=== PATIENT | female | born 2000 | race Caucasian/White ===

== ENCOUNTER 2023-08-17 07:08 | Outpatient (CLI) | payer BC, SELFPAY ==
--- NOTE | 2023-08-17 08:25 | W.ANESCHARGE ---
Anesthesia Charges Start Date/Time Anesthesia Start Date: 08/17/23 Anesthesia Start Time: 08:08 Stop Date/Time Anesthesia Stop Date: 08/17/23 Anesthesia Stop Time: 08:35
--- NOTE | 2023-08-17 08:36 | W.ANESCHARGE ---
Anesthesia Charges Start Date/Time Anesthesia Start Date: 08/17/23 Anesthesia Start Time: 08:08 Stop Date/Time Anesthesia Stop Date: 08/17/23 Anesthesia Stop Time: 08:35
== END 2023-08-17 07:09 | disposition home or self-care (01) ==
LOC: OP CLINIC 07:10
PROVIDERS: PCP Family Medicine; Visit Provider Internal Medicine Gastroenterology
DX: K92.1 Melena (principal)
CPT/HCPCS: 00811; 45378; J2704

== ENCOUNTER 2023-09-19 17:53 | Emergency (ER) | payer BC, SELFPAY ==
[2023-09-19 18:05] VITALS: BP 116/70; PULSE 87; RESP 16; TEMP 36.5; O2SAT 100; BMI 21.0
--- NOTE | 2023-09-19 18:22 | ED_ITS ---
HPI - Skin/Abscess/Foreign Bdy General Date Seen: 09/19/23 Chief complaint: Skin/Abscess/Foreign Body Stated complaint: Stitches opened up on stomach Time Seen by Provider: 09/19/23 18:08 Source: patient Mode of arrival: ambulatory Limitations: no limitations History of Present Illness HPI narrative: Patient is a 23-year-old female presenting to emergency department for a wound on the left side of her abdomen. She states 1 month ago she went to sanding machine tender to have a pre cancerous mole removed. She had stitches placed to have the stitches removed 2 weeks ago. She states she then went on vacation and just got back few days ago. She has noticed the wound her stitches were is open and draining some purulent-appearing material. She is not sure if it was healing well when they removed the stitches. She has no follow-up scheduled to go over the results with dermatology. Denies fevers, chills, weakness, numbness, abdominal pain. No other concerns noted at this time Related Data Home Medications Medication Instructions Recorded Confirmed No Known Home Medications 01/08/23 01/08/23 Allergies Allergy/AdvReac Type Severity Reaction Status Date / Time No Known Drug Allergies Allergy Verified 01/08/23 23:21 Review of Systems 2 Narrative: Pertinent systems reviewed and negative unless stated in HPI PFSH PFSH Social History Smoking Status: Never smoker Do you use any of these nicotine containing products: None Second hand tobacco smoke exposure: No How often do you have a drink containing alcohol: 2-4 times a month How often do you have six or more drinks on one occasion: Never AUDIT-C Alcohol total score: 2 Non-prescribed substance use: denies use Exam Narrative: Exam Narrative: Const: Well-nourished, Well-developed, in no distress Eyes: PERRL, no conjunctival injection, and symmetrical lids HENT: Atraumatic external nose and ears. Moist mucous membranes. GI: Nontender/Nondistended, No rebound or guarding. MSK:Extremities w/o deformity, Normal Active ROM Skin: Warm, Dry. Uncertain 5 cm open wound with some purulent material noted to the left lower abdominal region Neuro: Normal Muscle tone, No focal neurological deficits. Psych: Awake, Alert, & Oriented x3. Appropriate mood and affect. Const: Vital Signs, click to edit/add: Vital Signs - 24 hr 09/19/23 18:05 Temperature 97.7 F Pulse Rate [Pulse Oximeter] 87 Respiratory Rate 16 Blood Pressure [Ri ght Upper Arm] 116/70 Pulse Oximetry 100 Oxygen Delivery Me thod Room Air Course Vital Signs Vital signs: Initial Vital Signs Temperature 97.7 F 09/19/23 18:05 Temperature Source Temporal Artery Scan 09/19/23 18:05 Pulse Rate 87 09/19/23 18:05 Respiratory Rate 16 09/19/23 18:05 Blood Pressure 116/70 09/19/23 18:05 Blood Pressure Mean 85 09/19/23 18:05 Pulse Oximetry 100 09/19/23 18:05 Oxygen Delivery Method Room Air 09/19/23 18:05 Vital Signs Temperature 97.7 F 09/19/23 18:05 Pulse Rate 87 09/19/23 18:05 Respiratory Rate 16 09/19/23 18:05 Blood Pressure 116/70 09/19/23 18:05 Pulse Oximetry 100 09/19/23 18:05 Oxygen Delivery Method Room Air 09/19/23 18:05 Temperature 97.7 F 09/19/23 18:05 Pulse Rate 87 09/19/23 18:05 Respiratory Rate 16 09/19/23 18:05 Blood Pressure 116/70 09/19/23 18:05 Pulse Oximetry 100 09/19/23 18:05 Oxygen Delivery Method Room Air 09/19/23 18:05 MDM - Skin/Abscess/Foreign Bdy MDM Narrative Medical decision making narrative: Patient is a 23-year-old female presenting to the emergency department for a wound. The wound is from a mole removal by dermatology. She has noticed it has been getting more infected in appearance with purulent material draining from it. It is not closed even though sutures were placed in or in for 2 weeks. She is otherwise doing well and showing no signs of sepsis. I did do a quick ultrasound and did not see any deeper abscess forming. We did do a wound culture. I do not believe lab work is necessary at the time as she is otherwise doing well. I will start her on antibiotics informed her to have close follow- up with a sanding machine tender Discharge Plan Discharge Clinical Impression: Cellulitis Qualifiers: Site of cellulitis: trunk Site of cellulitis of trunk: abdominal wall Qualified Code(s): L03.311 - Cellulitis of abdominal wall Prescriptions: No Action No Known Home Medications
--- OUTSIDE RECORDS SUMMARY | 2023-09-19 18:30 | XMS_ITS | Encounter Summary ---
Author Name Unknown Organization [facility] Address [address] [place] [address] Care Team Providers Care Ladle Watcher Name Role Phone No Primary/Referring, Phy Primary Care Provider Unavailable Encounter Details Date Type Department Care Team Description 03/11/2023 Notes/Orders [facility] [address] [place] [id number] Maia Foster, STUDENT CAREER DEVELOPMENT SPECIALIST, NURSE COMPANION [address] [place] [address] Chlamydia (HRC) (Primary Dx) Social History Tobacco Use Types Packs/Day Years Used Date Smoking Tobacco: Never Alcohol Use Standard Drinks/Week Comments Yes 0 (1 standard drink = 0.6 oz pur e alcohol) socially Sex and Gender Information Value Date Recorded Sex Assigned at Not on file Gender Identity Not on file Sexual Orientation Not on file documented as of this encounter Plan of Treatment Not on file documented as of this encounter Visit Diagnoses Diagnosis Chlamydia (HRC)- Primary Other specified chlamydial infection, in conditions classified elsewhere and of unspecified site documented in this encounter Care Teams Ladle Watcher Relationship Specialty Start Date End Date No Primary/Referring, Phy PCP - General 03/10/23 documented as of this encounter
--- OUTSIDE RECORDS SUMMARY | 2023-09-19 18:30 | XMS_ITS | Encounter Summary ---
Author Name Unknown Organization [facility] Address [address] [place] [address] Care Team Providers Care Outreach Nurse Name Role Phone No Primary/Referring, Phy Primary Care Provider Unavailable Reason for Visit * Reason Comments LAB RESULTS Encounter Details Date Type Department Care Team Description 03/11/2023 Telephone [facility] [address] [place] [id number] Maia Foster APRN, BOWLING BALL GRADER [address] [place] [address] LAB RESULTS Social History Tobacco Use Types Packs/Day Years Used Date Smoking Tobacco: Never Alcohol Use Standard Drinks/Week Comments Yes 0 (1 standard drink = 0.6 oz pur e alcohol) socially Sex and Gender Information Value Date Recorded Sex Assigned at Not on file Gender Identity Not on file Sexual Orientation Not on file documented as of this encounter Nursing Notes * Supriya King CMA - 03/11/2023 8:31 AM CDT Patient notified of results Supriya King CMA 03/11/2023, 8:32 AM * Marilin Langston - 03/11/2023 8:19 AM CDT Left message to call back 03/11/23 8:19 AM Marleen Foster APRN, BOWLING BALL GRADER 03/11/2023 8:04 AM CDT Back to Top Please call Sara and let her know that she did test positive for having Chlamydia. A prescription for Doxycycline taken twice a day for 7 days was sent to the [facility] in [place]. It isimportant that Sara take this medication for the full 7 days. She also should wear sunscreen orcover up because it can cause her to sunburn more easily. Sara should encourage any partners allan seen and tested as well. Maia Foster APRN, BOWLING BALL GRADER 03/11/2023, 8:04 AM documented in this encounter Plan of Treatment Not on file documented as of this encounter Visit Diagnoses Not on filedocumented in this encounter Care Teams Outreach Nurse Relationship Specialty Start Date End Date No Primary/Referring, Amauri PCP - General 03/10/23 documented as of this encounter
--- OUTSIDE RECORDS SUMMARY | 2023-09-19 18:30 | XMS_ITS | Clinical Summary ---
Author Name Unknown Organization [facility] Address [address] [place] [address] Care Team Providers Care Core Winding Operator Name Role Phone No Primary/Referring, Phy Primary Care Provider Unavailable Source Comments You are receiving this document as you are listed as the primary care provider,follow-up provider, or the patient has been referred to you for consultation.This is in compliance with the Medicare and[facility] EHR Incentive Program,which states Providers who transition their patient to another setting of careor provider of care or refers their patient to another provider of care shouldprovide summary care record for each transition of care or referral. [facility] Allergies No known active allergies Medications Medication Sig Dispensed Refills Start Date End Date Status amphetamine-dextroamph etamine (ADDERALL) 20 MG tablet Take 1 Tablet (20 mg) by mouth two times a day. 0 02/20/2023 Active Active Problems No known active problems Social History Tobacco Use Types Packs/Day Years Used Date Smoking Tobacco: Never Tobacco Cessation:Counseling Given: Not Answered Alcohol Use Standard Drinks/Week Comments Yes 0 (1 standard drink = 0.6 oz pur e alcohol) socially Sex and Gender Information Value Date Recorded Sex Assigned at Not on file Gender Identity Not on file Sexual Orientation Not on file Last Filed Vital Signs Vital Sign Reading Time Taken Comments Blood Pressure 124/71 03/10/2023 3:42 PM CDT Pulse 69 03/10/2023 3:42 PM CDT Temperature 36.7 ??C (98.1 ??F) 03/10/2023 3:42 PM CD T Respiratory Rate 16 03/10/2023 3:42 PM CDT Oxygen Saturation 100% 03/10/2023 3:42 PM CDT Inhaled Oxygen Concentration - - Weight 63.8 kg (140 lb 9.6 oz) 03/10/2023 3:42 P M CDT Height - - Body Mass Index - - Plan of Treatment Health Maintenance Due Date Last Done Comments Cervical Cancer Screening Due 2001 Hep C Screening (Preventive Services) 2001 HepB (1) 2001 COVID-19 Vaccine (#1) 2001 HIV Screening (Preventive Services) 2017 Adult Preventive Visit 2019 DTaP/Tdap/Td (7 - Tdap) 04/01/2023 04/01/20 13, 03/20/2006, 05/06/2002, Additional history exists Influenza (#1) 2023 05/21/2016, 06/11, 05/13/2013, Additional history exists Chlamydia 03/10/2024 03/10/2023 Zoster/Shingles (1 of 2) 2051 Pneumococcal Aged Out 2001, 04/10, 2001 No longer eligible based on patient's age to complete this topic Hib Completed 01/07/2002, 04/10, 2001 IPV (Polio) Completed 03/20/2006, 06/11, 2001, Additional history exists HepA Completed 07/31/2014, 04/01/2013 HPV Vaccine Completed 02/06/2016, 07/11, 04/01/2013 MCV4 Completed 10/14/2019, 05/13/2013 Care Teams Core Winding Operator Relationship Specialty Start Date End Date No Primary/Referring, Phy PCP - General 03/10/23
--- OUTSIDE RECORDS SUMMARY | 2023-09-19 18:31 | XMS_ITS | Clinical Summary ---
Author Name Unknown Organization [facility] Address [address] [place] [address]. [place] [address] Care Team Providers Care Sales Office Administrator Name Role Phone Kristy Cortez MD Primary Care Provider [phone] Allergies No known active allergies Medications Medication Sig Dispensed Refills Start Date End Date Status Ipratropium-Albuterol (COMBIVENT RESPIMAT) 20-100 MCG/ACT inhaler Inhale 1 puff into the lungs 4 times daily 0 Active Social History Tobacco Use Types Packs/Day Years Used Date Smoking Tobacco: Never Assessed Adolescent Education Answer Date Record ed Getting School Help Needed Not on file 05/01 Sex and Gender Information Value Date Recorded Sex Assigned at Not on file Gender Identity Not on file Sexual Orientation Not on file Last Filed Vital Signs Vital Sign Reading Time Taken Comments Blood Pressure 126/69 07/20/2017 4:07 PM HOUSECLEANER Pulse 88 07/20/2017 6:52 PM HOUSECLEANER Temperature 37.1 ??C (98.7 ??F) 07/20/2017 4:07 PM CS T Respiratory Rate 16 07/20/2017 6:52 PM HOUSECLEANER Oxygen Saturation 100% 07/20/2017 6:52 PM HOUSECLEANER Inhaled Oxygen Concentration - - Weight 61.2 kg (135 lb) 07/20/2017 4:07 PM HOUSECLEANER Height - - Body Mass Index - - Plan of Treatment Health Maintenance Due Date Last Done Comments ADVANCE CARE PLANNING 2001 ANNUAL REVIEW OF HM ORDERS 2001 CHLAMYDIA SCREENING 2001 HEPATITIS B IMMUNIZATION (1 of 3 - 3-dose series) 2001 YEARLY PREVENTIVE VISIT 2001 COVID-19 Vaccine (#1) 2001 DTAP/TDAP/TD IMMUNIZATION (1 - Tdap) 01/02/2008 HPV IMMUNIZATION (1 - 2-dose series) 01/02/2012 HIV SCREENING 01/02/2016 HEPATITIS C SCREENING 2019 PAP 2022 INFLUENZA VACCINE (#1) 2023 PHQ-2 (once per calendar year) 2023 IPV IMMUNIZATION Aged Out No longer e ligible based on patient's age to complete this topic MENINGITIS IMMUNIZATION Aged Out No l onger eligible based on patient's age to complete this topic Pneumococcal Vaccine: Pediat rics (0 to 5 Years) and At-Risk Patients (6 to 64 Years) Aged Out No longer eligi ble based on patient's age to complete this topic RSV MONOCLONAL ANTIBODY Aged Out No l onger eligible based on patient's age to complete this topic Care Teams Sales Office Administrator Relationship Specialty Start Date End Date Kristy Cortez MD PCP - General Family Practice 07/20/17
--- OUTSIDE RECORDS SUMMARY | 2023-09-19 18:31 | XMS_ITS | Encounter Summary ---
Author Name Unknown Organization [facility] Address [address] [address] Care Team Providers Care Exercise Physiology Professor Name Role Phone No Primary/Referring, Phy Primary Care Provider Unavailable Reason for Visit * Reason Comments Sore Throat Encounter Details Date Type Department Care Team Description 03/10/2023 3:00 PM CDT Office Visit [facility] [address] [facility] [place] [phone] Denny Hicks PA-C [address] [place] [address] Strep throat (Primary Dx); Sore throat; High risk sexual behavior, unspecified type Social History Tobacco Use Types Packs/Day Years Used Date Smoking Tobacco: Never Tobacco Cessation:Counseling Given: Not Answered Alcohol Use Standard Drinks/Week Comments Yes 0 (1 standard drink = 0.6 oz pur e alcohol) socially Sex and Gender Information Value Date Recorded Sex Assigned at Not on file Gender Identity Not on file Sexual Orientation Not on file documented as of this encounter Last Filed Vital Signs Vital Sign Reading [...] - - Body Mass Index - - documented in this encounter Patient Instructions * Attachments The following attachments cannot be sent through Care Everywhere. * Strep Throat (Palestinian) documented in this encounter Progress Notes * Denny Hicks PA-C - 03/10/2023 3:00 PM CDT Historical: Chief Complaint Patient presents with Sore Throat Cold/Cough/Flu/Sinus/Sore Throat How long have you had these symptoms? 2 day(s) What cold symptoms are you experiencing?Sorethroat Do you have any difficulty swallowing? No Do you have any ear pain when swallowing? No Have you been diagnosed with strep within the last month? No Were you exposed to someone with strep throat? No Have you had a fever? No Are there any treatments you have tried? No STI Screening Do you have a concern about risk of infection from a particular partner? YES How long ago was the potential exposure? 1 week(s) Do you know if they had any particular type of infection? No Are you currently having any of the following symptoms: Swollen glands Have you had unprotected intercourse in the last 3 months? YES Have you had a history of sexually transmitted infection? No Are you sexually active with: males Have you had any new partners in the past 3 months? YES What do you use to prevent ? None No LMP recorded. SUBJECTIVE: Sara Allen is a 23 y.o. female who complains of sore throat, also congestion, mild cough, chills and fatigue for 2 day(s). She denies , rash, recent travel. Patient also requesting STI testing. Reports sexually active with male partners, usually but not always uses barrier protection. Denies symptoms of concern at this time or confirmed exposure from a partner Allergies: Patient has no known allergies. OBJECTIVE: BP 124/71 (BP Location: Right Arm, BP Cuff Size: Regular) Pulse 69 Temp 98.1 ??F (36.7 ??C) (Oral) Resp 16 Wt 140 lb 9.6 oz (63.8 kg) SpO2 100% She appears well, vital signs are as noted by the nurse. Eyes- YOSELYN, EOMI, no injection of conjunctiva. Ears normal. Throat and pharynx- erythema posterior pharynx, erythema and bilateral tonsillar exudate noted without significant swelling, uvula midline, no abscess noted, airway patent. Neck supple, FROM. Submandibular adenopathy in the neck. Nose is non-congested. Sinuses non tender.Resp- normal effort, chest is clear, without wheezes or rales. Heart RRR, no MRG. Neuro- gait normal. ASSESSMENT: ICD-10-CM 1. Strep throat J02.0 penicillin V potassium (PEN VK) 500 MG tablet 2. Sore throat J02.9 STREP GROUP A, Molecular Detection 3. High risk sexual behavior, unspecified type Z72.51 Chlamydia & GC (14 Years and Older): Vagina Results for orders placed or performed in visit on 03/10/23 STREP GROUP A, Molecular Detection Result Value Ref Range Group A Strep Detected (A) Not Detected PLAN: penicillin V potassium (PEN VK) 500 MG tablet Take 1 Tablet (500 mg) by mouth two times a day for 10 days. Will treat strep with penicillin Testing for gonorrhea and chlamydia is pending at this time, please call with results and treat if indicated Offered blood tests for further STI which patient declines at this time Advised supportive care, oral fluids, rest, activity as tolerated. Saltwater gargle, lozenges, Acetaminophen, Ibuprofen PRN for symptom relief. Follow up with PCP as needed for continuing care. Discussed symptomatic care and red flags that should prompt re-evaluation. Portions of this note were created using speech-recognition software and may contain unintended word substitutions. Answered any questions. Patient (and/or hearing examiner) verbalizes understanding of and agreement with care plan. Denny Hicks PA-C 03/10/2023, 4:28 PM documented in this encounter Plan of Treatment Not on file documented as of this encounter Procedures Procedure Name Priority Date/Time Associated Diagnosis Comments CHLAMYDIA & GC (14 YEARS & OLDER) Routine 03/10/2023 4:15 PM CDT High risk sexual behavior, unspecified type STREP GROUP A, MOLECULAR DETECTION STAT 03/10/2023 3:47 PM CDT Sore throat documented in this encounter Results * (ABNORMAL) Chlamydia & GC (14 Years and Older): Vagina (03/10/2023 4:15 PM CDT) Chlamydia Trachomatis STD Detected(A) Not Detected 03/11/2023 4:20 AM CDT [facility] N. gonorrhoeae STD Not Detected Not Detected 03/11/2023 4:20 AM CDT [facility] Swab STD SPECIMEN FROM VAGINA / Unknown Non-blood Collection / Unknown 03/10/2023 4:15 PM CDT 03/10/2023 4:22 PM CDT Narrative [facility] - 03/11/2023 4:20 AM CDT Test performed by Machine Stemmer Mediated Amplification (TMA). Denny Hicks PA-C LAB_1 Performing Organization Address City/[facility]/ZIP Co de Phone Number [facility] [address] [address], [facility] [phone] * (ABNORMAL) STREP GROUP A, Molecular Detection (03/10/2023 3:47 PM CDT) Pathologist [facility] Group A Strep Detected( A) Not Detected 03/10/2023 4:20 PM CDT [facility] Comment:Methodology: Qualita tive real-time PCR assay Swab (Source Required) THROAT SWAB / Unknown Non-blood Collection / Unknown 03/10/2023 3:47 PM CDT 03/10/2023 3:57 PM CDT Denny Hicks PA-C LAB_1 Performing Organization Address City/[facility]/ZIP Co de Phone Number [facility] [address] [place] [address], [facility] [phone] documented in this encounter Visit Diagnoses Diagnosis Strep throat- Primary Streptococcal sore throat Sore throat Acute pharyngitis High risk sexual behavior, unspecified type documented in this encounter Care Teams Exercise Physiology Professor Relationship Specialty Start Date End Date No Primary/Referring, Phy PCP - General 03/10/23 documented as of this encounter
--- OUTSIDE RECORDS SUMMARY | 2023-09-19 18:31 | XMS_ITS | Encounter Summary ---
Author Name Unknown Organization [facility] [facility] Address [facility] [place] [address] Care Team Providers Care Languages And Literature Instructor Name Role Phone Establish, Need To MD Primary Care Provider [phone]- [phone] Reason for Visit * Reason Comments Cough Cough x1 week. Worse in last 2 days with hoarse voice and chest tightness. Fevers last night Encounter Details Date Type Department Care Team Description 10/27/2022 12:06 PM CDT - 10/27/2022 1:11 PM CDT Hospital Encounter [facility] [address] [place] [id number] Hiren Roman MD [address] [place], [place] [address] [address] Discharge Disposition: Discharge Home Social History Tobacco Use Types Packs/Day Years Used Date Smoking Tobacco: Never Smokeless Tobacco: Never Sex and Gender Information Value Date Recorded Sex Assigned at Not on file Gender Identity Not on file Sexual Orientation Not on file COVID-19 Exposure Response Date Recorded In the last 10 days, have yo u been in contact with someone who was confirmed or suspected to have Coronavirus/COVID-19? No / Unsure 10/27/2022 12:09 PM CDT documented as of this encounter Last Filed Vital Signs Vital Sign Reading Time Taken Comments Blood Pressure 128/77 10/27/2022 12:10 PM CDT Pulse 73 10/27/2022 12:10 PM CDT Temperature 36.8 ??C (98.2 ??F) 10/27/2022 12:10 PM C DT Respiratory Rate 18 10/27/2022 12:10 PM CDT Oxygen Saturation 97% 10/27/2022 12:10 PM CDT Inhaled Oxygen Concentration - - Weight - - Height - - Body Mass Index - - documented in this encounter Discharge Instructions * Discharge Instructions* Hiren Roman MD - 10/27/2022 12:57 PM CDT Your symptoms are compatible with a viral respiratory infection at this time. If her symptoms are not improving as I anticipate they will with time or if they worsen you may fill prescription for theantibiotic. If you do take the oral antibiotic you should take a probiotic while on that. * Attachments The following attachments cannot be sent through Care Everywhere. * Acute Bronchitis Adult (Prydeinig) documented in this encounter Medications at Time of Discharge Medication Sig Dispensed Refills Start Date End Date albuterol 90 mcg/actuation HFA inhaler Inhale 2 Puffs into mouth/lungs every 4 hours as needed for Wheezing 18 g 4 10/27/2022 10/27/2023 dextroamphetamine-amphe tamine (ADDERALL) 20 mg tablet Take 1 Tablet (20 mg) by mouth 2 times daily 0 03/28/2021 ipratropium-albuteroL (COMBIVENT RESPIMAT) 20-100 mcg/actuation inhaler Inhale 1 Puff into mouth/lungs 0 azithromycin (ZITHROMAX) 250 mg tablet Take 2 Tablets (500 mg) by mouth daily for 1 day, THEN 1 Tablet (250 mg) daily for 4 days. 6 Tablet 0 10/27/2022 11/01/2022 documented as of this encounter Ordered Prescriptions Prescription Sig Dispensed Refills Start Date End Da te albuterol 90 mcg/actuation HFA inhaler Inhale 2 Puffs into mouth/lungs every 4 hours as needed for Wheezing 18 g 4 10/27/2022 10/27/2023 azithromycin (ZITHROMAX) 250 mg tablet Take 2 Tablets (500 mg) by mouth daily for 1 day, THEN 1 Tablet (250 mg) daily for 4 days. 6 Tablet 0 10/27/2022 11/01/2022 documented in this encounter Discharge Disposition Disposition Code Departure Means Destination Discharge Home Home documented in this encounter ED Notes * Hiren Roman MD - 10/27/2022 12:05 PM CDT Sara Allen [id number] Assessment & ED/ Department Course Assessment 1. Viral bronchitis ED Course as of 10/27/22 1310 Mon Oct 27, 2022 1255 COVID-19 SCREEN: COVID-19 Negative patient's COVID test was negative. Patient's x-ray as read by radiologist was negative for acute findings. I discussed most likely viral nature of illness and symptomatic treatment including albuterol inhaler as she does have exercise- induced asthma. I did go with a rescue prescription for azithromycin as they will be traveling and if not improving as I would anticipate in a week's time or if symptoms are worsening that will be something that they will be able to reach for but I did discuss if that is filled the risks of diarrhea etc. and benefits of taking a probiotic while on an oral antibiotic. I also discussed symptoms dramatically worsen that re-evaluation healthcare provider would be most appropriate. Disposition: Discharged Follow-up Appointment/Instructions/Discharge Medication Summary No follow up. Medications At Discharge Start Taking albuterol 90 mcg/actuation HFA inhaler Inhale 2 Puffs into mouth/lungs every 4 hours as needed for Wheezing azithromycin 250 mg tablet Commonly known as: ZITHROMAX Take 2 Tablets (500 mg) by mouth daily for 1 day, THEN 1 Tablet (250 mg) daily for 4 days. Start taking on: October 27, 2022 Discharge Instructions Your symptoms are compatible with a viral respiratory infection at this time. If her symptoms are not improving as I anticipate they will with time or if they worsen you may fill prescription for theantibiotic. If you do take the oral antibiotic you should take a probiotic while on that. History of Present Illness HPI Patient is here with mother because of symptoms that have been going on for the past for 5 days. Yesterday she had chest pain with this. It was hurting to breathe even shallowly. Last night was more in the front of the chest. It now feels tight. She does have a history of exercise-induced asthma for which she had been on albuterol. She did try her inhaler which was and did not help much. Last night her mother reports that her lips had been Blue. It feels like sandpaper when she tries tobreathe. In the past for 5 days now she is been dealing with her nose being plugged. She has recently come back from spring in [place]. She states she had popped her ears and had episode of dizz iness after landing. That is not something he typically deals with. She did have fevers last night. Past Medical History, Past Surgical History, Problem List, Family History, Social History, Medication List, and Allergies were reviewed as documented in [facility] Snapshot. Relevant ROS are documented within the HPI above. Physical Exam Initial Vital Signs Repeat (last) Vital Signs BP: 128/77 Pulse : 73 Temp: 36.8 ??C (98.2 ??F) Resp Rate: 18 O2 Sat (%): 97 % Device (Oxygen Therapy): room air . Physical Exam Vitals and nursing note reviewed. Constitutional: Appearance: Normal appearance. HENT: Right Ear: Tympanic membrane normal. Left Ear: Tympanic membrane normal. Nose: Congestion present. Mouth/Throat: Mouth: Mucous membranes are moist. Cardiovascular: Rate and Rhythm: Normal rate and regular rhythm. Heart sounds: Normal heart sounds. Pulmonary: Comments: She has diminished breath sounds in her bases. I did not appreciate any wheezing or prolonged expiratory phase. There were some rales that cleared on her left side posteriorly Musculoskeletal: Cervical back: Neck supple. Neurological: Mental Status: She is alert. Procedure E / M Documentation MDM Medications - No data to display XR Chest -Cough 2 Views Final Result No acute cardiopulmonary finding. Interpreting Provider Location: [place] [address] Labs Reviewed LAB RAPID COVID-19 SCREEN- NASAL SWAB - Normal Narrative: Negative results should be treated as presumptive and, if inconsistent with clinical signs and symptoms or necessary for patient management, should be tested with an alternative molecular assay. documented in this encounter Plan of Treatment Not on file documented as of this encounter Procedures Procedure Name Priority Date/Time Associated Diagnosis Comments LAB RAPID COVID-19 SCREEN- NASAL SWAB STAT 10/27/2022 12:54 PM CDT XR CHEST 2 VIEWS (PA AND LATERAL) Stat & Read Stat 10/27/2022 12:33 PM CDT documented in this encounter Results * RAPID COVID-19 Screen- Nasal Swab (10/27/2022 12:54 PM CDT) [facility] Signature COVID-19 SCREEN COVID-19 Negative COVID-19 Negative 10/27/2022 12:55 PM CDT [facility] Respiratory NASAL STRUCTURE / Unknown 10/27/2022 12:54 PM CDT 10/27/2022 12:54 PM CDT Narrative [facility] - 10/27/2022 12:55 PM CDT Negative results should be treated as presumptive and, if inconsistent with clinical signs and symptoms or necessary for patient management, should be tested with an alternative molecular assay. Hiren Roman MD MICROBIOLOGY - GEN ERAL ORDERABLES [facility] [address] [address] * XR Chest -Cough 2 Views (10/27/2022 12:33 PM CDT) Anatomical Region Laterality Modality Chest Computed Radiogr aphy 10/27/2022 12:4 1 PM CDT Impressions 10/27/2022 12:42 PM CDT No acute cardiopulmonary finding. Interpreting Provider Location: [facility] [address] Narrative 10/27/2022 12:42 PM CDT XR CHEST 2 VIEWS (PA AND LATERAL), obtained on 10/27/2022 12:33 PM HISTORY: COUGH COMPARISON: None. ? FINDINGS: The cardiac silhouette, mediastinal contours, and central pulmonary vascularity are within normal limits. The lungs are clear, without focal consolidation, pneumothorax, or pleural effusion. There is no acute appearing finding involving the visualized superficial soft tissues or osseous structures. Procedure Note Dario Segovia MD - 10/27/2022 XR CHEST 2 VIEWS (PA AND LATERAL), obtained on 10/27/2022 12:33 PM HISTORY: COUGH COMPARISON: None. FINDINGS: The cardiac silhouette, mediastinal contours, and central pulmonaryvascularity are within normal limits. The lungs are clear, without focal consolidation, pneumothorax, or pleuraleffusion. There is no acute appearing finding involving the visualized superficialsoft tissues or osseous structures. IMPRESSION: No acute cardiopulmonary finding. Interpreting Provider Location: [facility] Kimberly Rodriguez [id number] Hiren Roman MD XRAY ORDERABLES documented in this encounter Visit Diagnoses Diagnosis Viral bronchitis- Primary Acute bronchitis documented in this encounter Historical Medications * This list may reflect changes made after this encounter. Medication Sig Dispensed Refills Start Date End Date ipratropium-albuteroL (COMBIVENT RESPIMAT) 20-100 mcg/actuation inhaler Inhale 1 Puff into mouth/lungs 0 added in this encounter Additional Health Concerns Infection Onset Date Last Indicated Resolved Time PUI-COVID 10/27/2022 10/27/2022 10/27/2022 12:5 5 PM CDT documented as of this encounter Care Teams Languages And Literature Instructor Relationship Specialty Start Date End Date Establish, Need To, [address] [facility] [place] [address] PCP - General EDITOR SCHOOL PHOTOGRAPH 10/27/22 documented as of this encounter
--- OUTSIDE RECORDS SUMMARY | 2023-09-19 18:31 | XMS_ITS | Referral Summary ---
Author Name Unknown Organization [place] Address [address] [place] [address]. [place] [address] Care Team Providers Care Drawer Liner Name Role Phone Kristy Cortez MD Primary Care Provider [phone] Allergies No known active allergies Medications Medication [...] Comments Blood Pressure 126/69 07/20/2017 4:07 PM CONSULTING TECHNICAL DIRECTOR Pulse 88 07/20/2017 6:52 PM CONSULTING TECHNICAL DIRECTOR Temperature 37.1 ??C (98.7 ??F) 07/20/2017 4:07 PM CS T Respiratory Rate 16 07/20/2017 6:52 PM CONSULTING TECHNICAL DIRECTOR Oxygen Saturation 100% 07/20/2017 6:52 PM CONSULTING TECHNICAL DIRECTOR Inhaled Oxygen Concentration - - Weight 61.2 kg (135 lb) 07/20/2017 4:07 PM CONSULTING TECHNICAL DIRECTOR Height - - Body Mass Index - - Plan of Treatment Not on file Care Teams Drawer Liner Relationship Specialty Start Date End Date Kristy Cortez MD PCP - General Family Practice 07/20/17
--- OUTSIDE RECORDS SUMMARY | 2023-09-19 18:31 | XMS_ITS | Clinical Summary ---
Author Name Unknown Organization [facility] Address [address] [place] [address] Care Team Providers Care Executive Pastry Chef Name Role Phone Establish, Need To MD Primary Care Provider [phone] Source Comments If you need additional information that is not available on Care Everywhere, please contact our Medical Records Department during business hours (Thursday - Thursday, 8 am - 5 pm) at . During nonbusiness hours, please contact our Trauma and Emergency Center at .[facility] and [facility] Allergies No known active allergies Medications * Medications may not be up to date as of this document. Always verify current medications with the patient. Medication Sig Dispensed Refills Start Date End Date Status dextroamphetamine-am phetamine (ADDERALL) 20 mg tablet Take 1 Tablet (20 mg) by mouth 2 times daily 0 03/28/2021 Active ipratropium-albutero L (COMBIVENT RESPIMAT) 20-100 mcg/actuation inhaler Inhale 1 Puff into mouth/lungs 0 Active albuterol 90 mcg/actuation HFA inhaler Inhale 2 Puffs into mouth/lungs every 4 hours as needed for Wheezing 18 g 4 10/27/2022 10/27/2023 Active Social History Tobacco Use Types Packs/Day Years Used Date Smoking Tobacco: Never Smokeless Tobacco: Never Sex and Gender Information Value Date Recorded Sex Assigned at Not on file Gender Identity Not on file Sexual Orientation Not on file Obstetrics History Last Filed Vital Signs Vital Sign Reading [...] Health Maintenance Due Date Last Done Comments COVID-19 Vaccine (#1) 2001 DEPRESSION/ANXIETY PHQ4 2013 CERVICAL CANCER SCREENING 2019 LIPID SCREEN 2019 WELLNESS VISIT 2019 PERTUSSIS 01/02/2020 DTaP/Tdap/Td Vaccine (7 - Td or Tdap) 04/01/2023 04/01/2013, 03/20/2006, 05/06/2002, Additional history exists CHLAMYDIA SCREEN 04/24/2023 04/24/2022 INFLUENZA (#1) 2023 05/21/2016, 06/11, 05/13/2013, Additional history exists PNEUMOCOCCAL AGES 0-64 YEARS Aged Out 2001, 2001, 2001 No longer eligible based on patient's age to complete this topic POLIO (IPV) Vaccine Completed 03/20/2006, 2001, 2001, Additional history exists HPV Vaccine Completed 02/06/2016, 07/11, 04/01/2013 Care Teams Executive Pastry Chef Relationship Specialty Start Date End Date Establish, Need ToMD [address] [facility] [place] [address] PCP - General MUD JACK OPERATOR 10/27/22
--- OUTSIDE RECORDS SUMMARY | 2023-09-19 18:31 | XMS_ITS | Encounter Summary ---
Author Name Unknown Organization [employer] [facility] Address [address] [place] [address] Care Team Providers Care Gi Physician Name Role Phone Establish, Need To Primary Care Provider [phone] Encounter Details Date Type Department Care Team Description 10/27/2022 Travel Social History Tobacco Use Types Packs/Day Years [...] PM CDT documented as of this encounter Plan of Treatment Not on file documented as of this encounter Visit Diagnoses Not on filedocumented in this encounter Additional Health Concerns Infection Onset Date Last Indicated Resolved Time PUI-COVID 10/27/2022 10/27/2022 10/27/2022 12:5 5 PM CDT documented as of this encounter Care Teams Gi Physician Relationship Specialty Start Date End Date Establish, Wendy ToMD [address] [place], [place] [id number] PCP - General JEWEL STAKER 10/27/22 documented as of this encounter
--- OUTSIDE RECORDS SUMMARY | 2023-09-19 18:31 | XMS_ITS | Clinical Summary ---
Author Name Unknown Organization [facility] [place], [place] [address] Care Team Providers Care Panelboard Operator Name Role Phone Kristy Cortez Primary Care Provider Allergies No known active allergies Medications Medication Sig Dispensed Refills Start Date End Date Status albuterol HFA (VENTOLIN HFA) 90 mcg/actuation inhalerIndications:Ches t tightness Inhale 1-2 Puffs by mouth every 4 hours while awake. 18 g 1 08/12/2020 Active dextroamphetamine-amphe tamine (AdderalL) 20 mg tabletIndications:Atten tion deficit hyperactivity disorder (ADHD), combined type Take 1 Tablet (20 mg) by mouth two times daily. 60 Tablet 0 01/19/2023 Active dextroamphetamine-amphe tamine (AdderalL) 20 mg tabletIndications:Atten tion deficit hyperactivity disorder (ADHD), combined type Take 1 Tablet (20 mg) by mouth two times daily. 60 Tablet 0 06/12/2023 Active Active Problems Problem Noted Date Diagnosed Date Bloody stools 04/02/2023 Moderate episode of recurrent major depressive d isorder 12/13/2020 Attention deficit hyperactiv ity disorder (ADHD), combined type 02/10/2020 Migraine without aura and wi thout status migrainosus, not intractable 12/15/2018 Syncope 01/12/2018 Eczema of right hand 09/06/2015 Encounters Date Type Department Care Team Description 08/17/2023 7:15 AM DIRECTOR OF CAREER RESOURCES Procedure Only [facility] [address] [facility] [place] [id number] Ahsan Ha MD 08/16/2023 Travel 07/27/2023 1:00 PM DIRECTOR OF CAREER RESOURCES Preop Visit [facility] [address] [place] [address] Kristy Cortez DO Preoperative Exam (08/17/23 colonoscopy) 07/27/2023 Travel from Last 3 Months Immunizations Name Administration Dates Next Due AMB Influenza, IIV3 (Age >=3 years)(Flu Clinic Only) 07/07/2008 DTaP 03/20/2006, 2,2001,04/10,2001 HIB-HepB (Comvax) 01/07/2002,2001,02/27/20 01 HPV 9 (Gardasil 9) 02/06/2016 Hepatitis A (Peds) 07/31/2014,04/01/2013 014 Human Papilloma Virus Vaccine 07/31/2014, 013 06/01/2013 Inactivated Polio Vaccine 03/20/2006,,2001,02/08 Influenza, IIV3 (Age >=3 years) 05/13/20 13,08/30/2012,08/01/2011,07/11,05/14/2009,07/07/2008,07/07/20 07,10/14/2006,07/22/2006 Influenza, IIV4 05/21/2016,07/05/2014 MMR 03/20/2006,01/07/2002 Meningococcal Vaccine (Menactra) 05/13/2013 Meningococcal Vaccine (Menveo) 10/14/2019 Pneumococcal conj 7-Valent ( Prevnar 7) 2001,2001,2001 Tdap 04/01/2013 04/01/2023 Varicella Vaccine 03/20/2006,01/07/2005,01/08/20 02 Family History Medical History Relation Name Comments Heart Disease Maternal Aunt rapid heart b eat Heart attack Maternal Grandfather materna l great grandfather fatal mi at 35 Heart Disease Maternal Grandmother MA bef ore 65 Heart Disease Maternal Uncle Heart Disease Other [facility] side of long QT syndrome at age 19; was found to be related to the mother's side of the family, which is the non blood related side Relation Name Status Comments Maternal Aunt Maternal Grandfather Maternal Grandmother Maternal Uncle Other Social History Tobacco Use Types Packs/Day Years Used Date Smoking Tobacco: Never Smokeless Tobacco: Never Tobacco Cessation:Counseling Given: Yes Alcohol Use Standard Drinks/Week Comments Yes 0 (1 standard drink = 0.6 oz pur e alcohol) occ PHQ-2 Answer Date Recorded PHQ-2 TOTAL SCORE 0 11/13/2022 Social Connections Answer Date Recorded Frequency of Communication with Friends and Fami ly 0 03/31/2023 Financial Resource Strain Answer Date R ecorded Difficulty of Paying Living Expenses 3 03/31/2023 Difficulty of Paying Living Expenses Not on file 03/31/2023 Food Insecurity Answer Date Recorded Worried About Running Out of Food in the Last Ye ar 1 03/31/2023 Transportation Needs Answer Date Record ed Lack of Transportation (Medical) 1 03/31/2023 Housing Stability Answer Date Recorded Unable to Pay for Housing in the Last Year 1 03/31/2023 Sex and Gender Information Value Date Recorded Sex Assigned at Not on file Gender Identity Not on file Sexual Orientation Not on file Obstetrics History Para Term AB IAB SAB Ectopic Multiple Livin g Live Births 0 0 0 0 0 0 0 0 0 0 0 Last Filed Vital Signs Vital Sign Reading Time Taken Comments Blood Pressure 102/69 07/27/2023 1:09 PM DIRECTOR OF CAREER RESOURCES Pulse 78 07/27/2023 1:09 PM DIRECTOR OF CAREER RESOURCES Temperature 36.6 ??C (97.8 ??F) 07/27/2023 1:09 PM CS T Respiratory Rate 14 09/12/2020 4:21 PM DIRECTOR OF CAREER RESOURCES Oxygen Saturation 98% 07/27/2023 1:09 PM DIRECTOR OF CAREER RESOURCES Inhaled Oxygen Concentration - - Weight 61.7 kg (136 lb) 07/27/2023 1:09 PM DIRECTOR OF CAREER RESOURCES Height 168.9 cm (5' 6.5) 07/27/2023 1:09 PM DIRECTOR OF CAREER RESOURCES Body Mass Index 21.62 07/27/2023 1:09 PM DIRECTOR OF CAREER RESOURCES Plan of Treatment Health Maintenance Due Date Last Done Comments COVID-19 vaccine series (#1) 2001 HIV for age 15-65 01/02/2016 Hepatitis C screening for age 18-79 2019 Pap test for age 21-65 2022 Chlamydia for age 16-24 07/03/2022 07/03/20 21, 10/14/2019, 05/18/2017 Tetanus booster 04/01/2023 04/01/2013 Influenza for age 9-49 04/10/2023 6, 07/05/2014, 05/13/2013, Additional history exists Depression screening for age 12+ 11/14/2023 11/13/2022, 07/03/2021, 04/08/2021, Additional history exists BMI (ht and wt on same day) for age 18+ 07/27/2024 07/27/2023, 07/02/2022, 02/12/2022, Additional history exists Pneumococcal series for age 6-64 Aged Out 2001, 2001, 2001 No longer eligible based on patient's age to complete this topic Tdap Completed 04/01/2013 HPV series for age 9-26 Completed 02/06/20 16, 07/31/2014, 04/01/2013 Procedures Procedure Name Priority Date/Time Associated Diagnosis Comments COLONOSCOPY DIAGNOSTIC Routine 08/17/2023 12:00 AM DIRECTOR OF CAREER RESOURCES Hematochezia HEMOGLOBIN Routine 07/27/2023 1:43 PM DIRECTOR OF CAREER RESOURCES Bloody stools from Last 3 Months Results * COLONOSCOPY DIAGNOSTIC (08/17/2023 12:00 AM DIRECTOR OF CAREER RESOURCES) [facility] PROCEDURE ORD * HEMOGLOBIN (07/27/2023 1:43 PM DIRECTOR OF CAREER RESOURCES) HEMOGLOBIN 13.7 12.0 - 16.0 g/dL 07/27/2023 1:59 PM DIRECTOR OF CAREER RESOURCES [facility] MCV 91 80 - 100 fL 07/27/2023 1:59 PM DIRECTOR OF CAREER RESOURCES [facility] Blood BLOOD SPECIMEN / Unknown Capillary / Unknown 07/27/2023 1:43 PM DIRECTOR OF CAREER RESOURCES 07/27/2023 1:45 PM DIRECTOR OF CAREER RESOURCES Kristy Cortez DO HEMATOLOGY [facility] [address] [place] [address], from Last 3 Months Care Teams Panelboard Operator Relationship Specialty Start Date End Date Kristy Cortez DO [address] [place] [address] PCP - General Family Practice 11/13/16
--- OUTSIDE RECORDS SUMMARY | 2023-09-19 18:31 | XMS_ITS | Encounter Summary ---
Author Name Unknown Organization [facility] Address [address] [place] [address] Care Team Providers Care Pocket Grinder Operator Name Role Phone Establish, Need To Primary Care Provider [phone]- [phone] Encounter Details Date Type Department Care Team Description 10/27/2022 Interface Meds [facility] SCREENING [address] [place] [address] Listed, [place] [address] Social History Tobacco Use Types Packs/Day Years [...] on filedocumented in this encounter Care Teams Pocket Grinder Operator Relationship Specialty Start Date End Date Luz, Wendy ToMD [address] [place], [place] [id number] PCP - General CROOK OPERATOR 10/27/22 documented as of this encounter
--- NOTE | 2023-09-22 07:35 | ED.NURSE ---
Left message for patient to call us back. Sensitivities are back from Wound culture. Reviewed with Dr. Guzman. Per Dr. Guzman, patient was prescribed Kephlex and Bactrim. Recommends to stop Kephlex and continue Bactrim. Will wait for patient to call back.
--- NOTE | 2023-09-22 20:02 | ED.NURSE ---
contacted patient about wound culture results. instructed to stop the keflex and to continue the bactrim. pt. feels much better and states her wound is healing better.
== END 2023-09-19 18:53 | disposition home or self-care (01) ==
LOC: ED 18:29
PROVIDERS: Emergency Provider Student in an Organized Health Care Education/Training Program; PCP Family Medicine
DX: L03.311 Cellulitis of abdominal wall (principal)
CPT/HCPCS: 87070; 87186; 99282; 99283; 99284

== ENCOUNTER 2024-12-01 15:41 | Emergency (ER) | payer BC, SELFPAY ==
--- OUTSIDE RECORDS SUMMARY | 2024-12-01 15:44 | XMS_ITS | Clinical Summary ---
Author Organization [place] Address [address] [place] [address]. [place] [address] Care Team Providers Care Steward/Stewardess Name Role Phone Kristy Cortez MD Primary Care Provider [phone] Allergies No known active allergies Medications Ipratropium-Albu terol (COMBIVENT RESPIMAT) 20-100 MCG/ACT inhaler Inhale 1 puff into the lungs 4 times daily Active Social History Tobacco Use Types Packs/Day Years Used Date Smoking Tobacco: Never Assessed Adolescent Education Answer Date Record ed Getting School Help Needed Not on file 05/01 Comments Unknown Sex and Gender Information Value Date Recorded Sex Assigned at Not on file Legal Sex Female 4:00 PM PUNCH PRESS OPERATOR Gender Identity Not on file Sexual Orientation Not on file Last Filed Vital Signs Vital Sign Reading Time Taken Comments Blood Pressure 126/69 07/20/2017 4:07 PM PUNCH PRESS OPERATOR Pulse 88 07/20/2017 6:52 PM PUNCH PRESS OPERATOR Temperature 37.1 C (98.7 F) 07/20/2017 4:07 PM PUNCH PRESS OPERATOR Respiratory Rate 16 07/20/2017 6:52 PM PUNCH PRESS OPERATOR Oxygen Saturation 100% 07/20/2017 6:52 PM PUNCH PRESS OPERATOR Inhaled Oxygen Concentration - - Weight 61.2 kg (135 lb) 07/20/2017 4:07 PM PUNCH PRESS OPERATOR Height - - Body Mass Index - - Plan of Treatment Not on file Insurance [place] Member Subscriber Plan / Payer (Ef fective 2016-Present) Name:Sara Braedn Relation to Subscriber:Child Name:LA NENA BRADEN Date of :1975 (Home) Address: [address] [place] [address] [place] [address] Payer ID:[id number] (NAIC) Group ID:[id number] Type:Indemnity Address: [facility] [address] [place] [address] Care Teams Steward/Stewardess Relationship Specialty Start Date End Date Kristy Cortez MD PCP - General Family Practice 07/20/17
--- OUTSIDE RECORDS SUMMARY | 2024-12-01 15:44 | XMS_ITS | Clinical Summary ---
Author Organization [facility] [employer] Address [address] [place] [address] Care Team Providers Care Refrigerating Oiler Name Role Phone Karina Araujo Primary Care Provider [phone] Allergies No known active allergies Medications ketoconazole 2 % creamIndications:T inea corporis Apply topically to affected area(s) two times daily. 60 g 4 Active mometasone 0.1 % ointmentIndication s:Rash Apply topically to affected area(s) once daily. 15 g 4 Active albuterol HFA (Ventolin HFA) 90 mcg/actuation inhalerIndications :Exercise-induced asthma (HC) Inhale 1-2 Puffs by mouth every 4 hours while awake. 18 g 3 5 Active dextroamphetamine- amphetamine (AdderalL) 20 mg tabletIndications: Attention deficit hyperactivity disorder (ADHD), combined type Take 1 Tablet (20 mg) by mouth two times daily. 60 Tablet 5 Active dextroamphetamine- amphetamine (AdderalL) 20 mg tabletIndications: Attention deficit hyperactivity disorder (ADHD), combined type Take 1 Tablet (20 mg) by mouth two times daily. 60 Tablet 5 01/09/20 25 Active dextroamphetamine- amphetamine (AdderalL) 20 mg tabletIndications: Attention deficit hyperactivity disorder (ADHD), combined type Take 1 Tablet (20 mg) by mouth two times daily. 60 Tablet 5 02/08/20 25 Active Active Problems Problem Noted Date Diagnosed Date Controlled substance agreement signed 01/28/2024 Bloody stools 04/02/2023 Moderate episode of recurrent major depressive d isorder 12/13/2020 Attention deficit hyperactiv ity disorder (ADHD), combined type 02/10/2020 Migraine without aura and wi thout status migrainosus, not intractable 12/15/2018 Syncope 01/12/2018 Eczema of right hand 09/06/2015 Encounters Date Type Department Care Team Description 10/20/2024 10:10 AM CDT Office Visit [facility] [address] [place] [address] Karina Araujo PA Physical (Annual exam with pap-pt thinks she had one done in [facility] last year) 10/20/2024 Travel 09/13/2024 11:00 AM BRICKLAYER SUPERVISOR Office Visit [facility] [address] [place] [address] Jade Collins, Cough; Throat Problem 09/13/2024 Travel 09/13/2024 Nurse Triage [facility] [address] [place] [address] Karina Araujo PA Difficulty Breathing; Throat Pain/problem from Last 3 Months Immunizations Immunization Administration Dates Next Due AMB Influenza, IIV3 (Age >=3 years)(Flu Clinic Only) 07/07/2008 DTaP 03/20/2006, 2,2001,04/10,2001 HIB-HepB (Comvax) 01/07/2002,2001,02/27/20 01 HPV 9 (Gardasil 9) 02/06/2016 Hepatitis A (Peds) 07/31/2014,04/01/2013 014 Human Papilloma Virus Vaccine 07/31/2014, 013 06/01/2013 Inactivated Polio Vaccine 03/20/2006,,2001,02/08 Influenza, IIV3 (Age >=3 years) 05/13/20 13,08/30/2012,08/01/2011,07/11,05/14/2009,07/07/2008,07/07/20 07,10/14/2006,07/22/2006 Influenza, IIV4 05/21/2016,07/05/2014 MENINGOCOCCAL VACCINE 2 VIAL 2MO-55YO (MENVEO) 10/14/2019 MMR 03/20/2006,01/07/2002 Meningococcal Vaccine (Menactra) 05/13/2013 Pneumococcal conj 7-Valent ( Prevnar 7) 2001,2001,2001 Tdap 10/20/2024,04/01/2013 04/01/2023 Varicella Vaccine 03/20/2006,01/07/2005,01/08/20 02 Family History Medical History Relation Name Comments Heart Disease Maternal Aunt rapid heart b eat Heart attack Maternal Grandfather materna l great grandfather fatal mi at 35 Heart Disease Maternal Grandmother SD bef ore 65 Heart Disease Maternal Uncle Heart Disease Other cousin on [facility]'s side of long QT syndrome at [...] PHQ-2 Answer Date Recorded PHQ-2 TOTAL SCORE 4 10/20/2024 Social Connections Answer Date Recorded Do you often feel lonely or isolated from those around you? 0 04/08/2024 Financial Resource Strain Answer Date R ecorded Difficulty of Paying Living Expenses 3 03/31/2023 Difficulty of Paying Living Expenses Not on file 03/31/2023 Food Insecurity Answer Date Recorded Do you worry your food will run out before you are able to buy more? 1 04/08/2024 Transportation Needs Answer Date Record ed Does lack of transportation keep you from medica l appointments? 1 04/08/2024 Does lack of transportation keep you from work, meetings or getting things that you need? 1 04/08/2024 Housing Stability Answer Date Recorded What is your housing situation today? 1 04/08/2024 Utilities Answer Date Recorded Do you have trouble paying f or utilities (for example, heat, electricity, water, phone)? 1 04/08/2024 Comments No Sex and Gender Information Value Date Recorded Sex Assigned at Not on file Legal Sex Female 5:44 AM BRICKLAYER SUPERVISOR Gender Identity Not on file Sexual Orientation Not on file Obstetrics History Para Term AB IAB SAB Ectopic Multiple Livin g Live Births 0 0 0 0 0 0 0 0 0 0 0 Last Filed Vital Signs Vital Sign Reading Time Taken Comments Blood Pressure 102/70 10/20/2024 10:22 AM CDT Pulse 105 10/20/2024 10:22 AM CDT Temperature 37.1 C (98.7 F) 09/13/2024 11:12 AM BRICKLAYER SUPERVISOR Respiratory Rate 16 04/14/2024 2:28 PM CDT Oxygen Saturation 97% 10/20/2024 10:22 AM CDT Inhaled Oxygen Concentration - - Weight 62.6 kg (138 lb) 10/20/2024 10:22 AM CDT Height 168 cm (5' 6.14) 10/20/2024 10:22 AM CDT Body Mass Index 22.18 10/20/2024 10:22 AM CDT Plan of Treatment Upcoming Encounters Date Type Department Care Team (Late st Contact Info) Description 12/01/2024 3:55 PM CDT Office Visit [facility] [id number] [phone] Health Maintenance Due Date Last Done Comments HIV for age 15-65 01/02/2016 Hepatitis C screening for age 18-79 2019 Pap test for age 21-65 2022 Chlamydia for age 16-24 07/03/2022 07/03/20, 10/14/2019, 05/18/2017 COVID-19 vaccine series ( season) 2024 Influenza Vaccine (Season Ended) 2025 05/21/2016, 07/05/2014, 05/13/2013, Additional history exists BMI (ht and wt on same day) for age 18+ 10/20/2025 10/20/2024, 07/27/2023, 07/02/2022, Additional history exists Depression screening for age 12+ 10/20/2025 10/20/2024, 01/26/2024, 11/13/2022, Additional history exists Tetanus booster 10/20/2034 10/20/2024, 04/01/2013 Pneumococcal series for age 6-49 Aged Out 2001, 2001, 2001 No longer eligible based on patient's age to complete this topic HPV series for age 9-26 Completed 02/06/20 16, 07/31/2014, 04/01/2013 Tdap Completed 10/20/2024, 04/01/2013 Procedures Procedure Name Priority Date/Time Associated Diagnosis Comments CBC WITH AUTO DIFFERENTIAL Routine 10/20/2024 11:01 AM CDT Fatigue, unspecified type FERRITIN Routine 10/20/2024 11:01 AM CDT Fatigue, unspecified type COMP METABOLIC PANEL Routine 10/20/2024 11:01 AM CDT Fatigue, unspecified type TSH Routine 10/20/2024 11:01 AM CDT Fatigue, unspecified type VITAMIN B12 Routine 10/20/2024 11:01 AM CDT Fatigue, unspecified type URINE Routine 10/20/2024 11:01 AM CDT Amenorrhea COVID/FLU/RSV PANEL Routine 09/13/2024 1 1:29 AM BRICKLAYER SUPERVISOR Cough, unspecified type GC CHLAMYDIA TRACH PROBE Routine 07/03/2021 3:15 PM BRICKLAYER SUPERVISOR Screening for chlamydial disease from Last 3 Months or Most Recently Relevant to Health Maintenance Results * TSH (10/20/2024 11:01 AM CDT) TSH 0.96 mIU/L [facility] Comment: Reference Range > or = 20 Years 0.40-4.50 Ranges First trimester 0.26-2.66 Second trimester 0.55-2.73 Third trimester 0.43-2.91 Blood BLOOD SPECIMEN / Unknown 10/20/2024 11:01 AM CDT 10/20/2024 11:02 AM CDT Karina LIMA CHEMISTRY Final Resu lt [employer] [facility] [address] [place] [address], [facility] [address] [place] [address] * (ABNORMAL) CBC AND DIFFERENTIAL (10/20/2024 11:01 AM CDT) Pathologist [facility] WHITE BLOOD CELL COUNT 5.8 3.8 - 10.8 Thousand/u L [facility] RED BLOOD CELL COUNT 4.96 3.80 - 5.10 Million/uL [facility] HEMOGLOBIN 14.8 11.7 - 15.5 g/dL [facility] HEMATOCRIT 45.6(H) 35.0 - 45.0 % [facility] MCV 91.9 80.0 - 100.0 fL [facility] MCH 29.8 27.0 - 33.0 pg [facility] MCHC 32.5 32.0 - 36.0 g/dL [facility] Comment: For adults, a slight decrease in the calculated MCHC value (in the range of 30 to 32 g/dL) is most likely not clinically significant; however, it should be interpreted with caution in correlation with other red cell parameters and the patient's clinical condition. RDW 12.0 11.0 - 15.0 % [facility] PLATELET COUNT 328 140 - 400 Thousand/u L [facility] MPV 9.8 7.5 - 12.5 fL [facility] ABSOLUTE NEUTROPHILS 3,648 1,500 - 7,800 cells/uL [facility] ABSOLUTE LYMPHOCYTES 1,618 850 - 3,900 cells/uL [facility] ABSOLUTE MONOCYTES 418 200 - 950 cells/uL [facility] ABSOLUTE EOSINOPHILS 99 15 - 500 cells/uL [facility] ABSOLUTE BASOPHILS 17 0 - 200 cells/uL [facility] NEUTROPHILS 62.9 % [facility] LYMPHOCYTES 27.9 % [facility] MONOCYTES 7.2 % [facility] EOSINOPHILS 1.7 % [facility] BASOPHILS 0.3 % [facility] Blood BLOOD SPECIMEN / Unknown 10/20/2024 11:01 AM CDT 10/20/2024 11:02 AM CDT Karina LIMA HEMATOLOGY Final Resu lt [facility] [address] [facility] [place] [address], [place] [phone] [facility] [address] [facility] [place] [address] * FERRITIN (10/20/2024 11:01 AM CDT) Pathologist [facility] FERRITIN 36 16 - 154 ng/mL [facility] Blood BLOOD SPECIMEN / Unknown 10/20/2024 11:01 AM CDT 10/20/2024 11:02 AM CDT Karina LIMA CHEMISTRY Final Resu lt [facility] [address] [facility] [place] [address], [place] [phone] [facility] [address] [facility] [place] [address] * VITAMIN B12 (10/20/2024 11:01 AM CDT) VITAMIN B12 459 200 - 1,100 pg/mL [facility] Blood BLOOD SPECIMEN / Unknown 10/20/2024 11:01 AM CDT 10/20/2024 11:02 AM CDT Karina LIMA CHEMISTRY Final Resu lt [facility] [address] [place] [address], [place] [phone] [facility] [address] [place] [address] * URINE (10/20/2024 11:01 AM CDT) HCG, QL, URINE NEGATIVE NEGATIVE [facility] Urine URINE SPECIMEN / Unknown 10/20/2024 11:01 AM CDT 10/20/2024 11:02 AM CDT Karina LIMA URINE Final Resu lt [facility] [address] [place] [address], [place] [phone] [facility] [address] [place] [address] * (ABNORMAL) COMP METABOLIC PANEL (10/20/2024 11:01 AM CDT) GLUCOSE 77 65 - 99 mg/dL [facility] Comment: Fasting reference interval UREA NITROGEN (BUN) 12 7 - 25 mg/dL [facility] CREATININE 0.78 0.50 - 0.96 mg/dL [facility] EGFR 109 > OR = 60 mL/min/1. 73m2 [facility] BUN/CREATININE RATIO SEE NOTE: 6 (calc) [facility] Comment: Not Reported: BUN and Creatinine are within reference range. SODIUM 138 135 - 146 mmol/L [facility] POTASSIUM 4.4 3.5 - 5.3 mmol/L [facility] CHLORIDE 104 98 - 110 mmol/L [facility] CARBON DIOXIDE 28 20 - 32 mmol/L [facility] CALCIUM 9.8 8.6 - 10.2 mg/dL [facility] PROTEIN, TOTAL 7.6 6.1 - 8.1 g/dL [facility] ALBUMIN 4.9 3.6 - 5.1 g/dL [facility] GLOBULIN 2.7 1.9 - 3.7 g/dL (calc) [facility] ALBUMIN/GLOBULIN RATIO 1.8 1.0 - 2.5 (calc) [facility] BILIRUBIN, TOTAL 1.5(H) 0.2 - 1.2 mg/dL [facility] ALKALINE PHOSPHATASE 72 31 - 125 U/L [facility] AST 18 10 - 30 U/L [facility] ALT 15 6 - 29 U/L [facility] Blood BLOOD SPECIMEN / Unknown 10/20/2024 11:01 AM CDT 10/20/2024 11:02 AM CDT Karina LIMA CHEMISTRY Final Resu lt [facility] [employer] [facility] [address] [place] [address], [facility] [address] [place] [address] * (ABNORMAL) COVID/FLU/RSV PANEL (09/13/2024 11:29 AM BRICKLAYER SUPERVISOR) COVID 19 [facility] MOLECULAR Positive(A) Negative 09/14/2024 3:51 AM BRICKLAYER SUPERVISOR [facility] INFLUENZA A PCR Positive(A) 09/14/19 3:51 AM BRICKLAYER SUPERVISOR [facility] INFLUENZA B PCR Negative 3:51 AM BRICKLAYER SUPERVISOR [facility] Respiratory Syncytial Virus Negative 09/14/2024 3:51 AM BRICKLAYER SUPERVISOR [facility] Swab (Nasal Swab) Non-Blood / Unknown 09/13/2024 11:29 AM BRICKLAYER SUPERVISOR 09/13/2024 11:30 AM BRICKLAYER SUPERVISOR Jade Collins DO MICROBIOLOGY Final Result [facility] [address] [place] [address], * GC CHLAMYDIA TRACH PROBE [[id number]] (07/03/2021 3:15 PM BRICKLAYER SUPERVISOR) CHLAMYDIA PROBE Negative 4:03 PM BRICKLAYER SUPERVISOR [facility] N GONORRHOEAE PROBE Negative 07/04/2021 4:03 PM BRICKLAYER SUPERVISOR [facility] Other URINE SPECIMEN / Unknown Non-Blood / Unknown 07/03/2021 3:15 PM BRICKLAYER SUPERVISOR 07/03/2021 3:36 PM BRICKLAYER SUPERVISOR Kristy Cortez DO MICROBIOLOGY Final Resul t [facility] [address] [place] [address], from Last 3 Months or Most Recently Relevant to Health Maintenance Insurance [facility] [place] [address] [place] [phone] [facility] ADVANTAGE Care Teams Refrigerating Oiler Relationship Specialty Start Date End Date Karina Araujo PA [address] [place] [address] PCP - General Physician Monomer Recovery Operator 01/28/24
--- OUTSIDE RECORDS SUMMARY | 2024-12-01 15:44 | XMS_ITS | Clinical Summary ---
Author Organization [facility] Address [address], [place] [address] Care Team Providers Care Fiberglass Fabricator Name Role Phone No Primary/Referring, Phy Primary Care Provider Unavailable Source Comments You are receiving this document as you are listed as the primary care provider,follow-up provider, or the patient has been referred to you for consultation.This is in compliance with the Medicare and[facility] EHR Incentive Program,which states Providers who transition their patient to another setting of careor provider of care or refers their patient to another provider of care shouldprovide summary care record for each transition of care or referral. [facility] Allergies No known active allergies Medications amphetamine-dext roamphetamine (ADDERALL) 20 MG tablet Take 1 Tablet (20 mg) by mouth two times a day. 02/20/2023 Active Active Problems No known active problems Social History Tobacco Use Types Packs/Day Years Used Date Smoking Tobacco: Never Tobacco Cessation:Counseling Given: Not Answered Alcohol Use Standard Drinks/Week Comments Yes 0 (1 standard drink = 0.6 oz pur e alcohol) socially Comments Unknown Sex and Gender Information Value Date Recorded Sex Assigned at Not on file Legal Sex Female 7:12 AM CDT Gender Identity Not on file Sexual Orientation Not on file Last Filed Vital Signs Vital Sign Reading Time Taken Comments Blood Pressure 124/71 03/10/2023 3:42 PM CDT Pulse 69 03/10/2023 3:42 PM CDT Temperature 36.7 C (98.1 F) 03/10/2023 3:42 PM CDT Respiratory Rate 16 03/10/2023 3:42 PM CDT Oxygen Saturation 100% 03/10/2023 3:42 PM CDT Inhaled Oxygen Concentration - - Weight 63.8 kg (140 lb 9.6 oz) 03/10/2023 3:42 P M CDT Height - - Body Mass Index - - Plan of Treatment Health Maintenance Due Date Last Done Comments Cervical Cancer Screening Due 2001 Hep C Screening (Preventive Services) 2001 MenB Immunization Discussion 2001 HIV Screening (Preventive Services) 2017 Adult Preventive Visit 2019 HepB Vaccine (1) 01/02/2020 DTaP/Tdap/Td Vaccine (7 - Tdap) 04/01/2023 04/01/2013, 03/20/2006, 05/06/2002, Additional history exists Chlamydia 03/10/2024 03/10/2023 COVID-19 Vaccine ( season) 2024 Influenza Vaccine (#1) 2024 , 07/05/2014, 05/13/2013, Additional history exists Zoster/Shingles Vaccine (1 of 2) 2051 Pneumococcal Vaccine Aged Out 2001, 2001, 2001 No longer eligible based on patient's age to complete this topic Hib Vaccine Completed 01/07/2002, 04/10, 2001 IPV (Polio) Vaccine Completed 03/20/2006, 2001, 2001, Additional history exists HepA Vaccine Completed 07/31/2014, 04/01/2013 HPV Vaccine Completed 02/06/2016, 07/11, 04/01/2013 MCV4 Vaccine Completed 10/14/2019, 05/13/2013 Procedures Procedure Name Priority Date/Time Associated Diagnosis Comments CHLAMYDIA & GC (14 YEARS & OLDER) Routine 03/10/2023 4:15 PM CDT High risk sexual behavior, unspecified type from Last 3 Months or Most Recently Relevant to Health Maintenance Results * (ABNORMAL) Chlamydia & GC (14 Years and Older): Vagina (03/10/2023 4:15 PM CDT) Chlamydia Trachomatis STD Detected(A) Not Detected 03/11/2023 4:20 AM CDT [facility] N. gonorrhoeae STD Not Detected Not Detected 03/11/2023 4:20 AM CDT [facility] Swab STD SPECIMEN FROM VAGINA / Unknown Non-blood Collection / Unknown 03/10/2023 4:15 PM CDT 03/10/2023 4:22 PM CDT Narrative [facility] - 03/11/2023 4:20 AM CDT Test performed by [employer] Mediated Amplification (TMA). us Denny Hicks PA-C LAB_1 Final Resu lt [facility] [address] [place] [address], [facility] [phone] from Last 3 Months or Most Recently Relevant to Health Maintenance Care Teams Fiberglass Fabricator Relationship Specialty Start Date End Date No Primary/Referring, Emmay PCP - General 03/10/23
[2024-12-01 15:53] VITALS: BP 119/83; PULSE 88; RESP 16; TEMP 36.6; O2SAT 97; BMI 22.6
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
--- OUTSIDE RECORDS SUMMARY | 2024-12-01 17:28 | XMS_ITS | Clinical Summary ---
Author Organization [facility] Address [address] [place] [address]. [place] [address] Care Team Providers Care Manager Scheduling Name Role Phone Kristy Cortez MD Primary Care Provider Allergies No known active allergies Medications Ipratropium-Albu [...] on file Legal Sex Female 4:00 PM AUDIO VIDEO TECHNICIAN Gender Identity Not on file Sexual Orientation Not on file Last Filed Vital Signs Vital Sign Reading Time Taken Comments Blood Pressure 126/69 07/20/2017 4:07 PM AUDIO VIDEO TECHNICIAN Pulse 88 07/20/2017 6:52 PM AUDIO VIDEO TECHNICIAN Temperature 37.1 C (98.7 F) 07/20/2017 4:07 PM AUDIO VIDEO TECHNICIAN Respiratory Rate 16 07/20/2017 6:52 PM AUDIO VIDEO TECHNICIAN Oxygen Saturation 100% 07/20/2017 6:52 PM AUDIO VIDEO TECHNICIAN Inhaled Oxygen Concentration - - Weight 61.2 kg (135 lb) 07/20/2017 4:07 PM AUDIO VIDEO TECHNICIAN Height - - Body Mass Index - - Plan of Treatment Not on file Insurance [place] Care Teams Manager Scheduling Relationship Specialty Start Date End Date Kristy Cortez MD PCP - General Family Practice 07/20/17
--- OUTSIDE RECORDS SUMMARY | 2024-12-01 17:28 | XMS_ITS | Clinical Summary ---
Author Organization [facility] Address [address] [address] Care Team Providers Care Wool Cleaner Name Role Phone No Primary/Referring, Phy Primary Care Provider Unavailable Source Comments You are receiving this document as you are listed as the primary care provider,follow-up provider, or the patient has been referred to you for consultation.This is in compliance with the Medicare and[facility] EHR Incentive Program,which states Providers who transition their patient to another setting of careor provider of care or refers their patient to another provider of care shouldprovide summary care record for each transition of care or referral. [facility] Allergies No known active allergies Medications amphetamine-dext [...] Detected(A) Not Detected 03/11/2023 4:20 AM CDT [facility] N. gonorrhoeae STD Not Detected Not Detected 03/11/2023 4:20 AM CDT [facility] Swab STD SPECIMEN FROM VAGINA / Unknown Non-blood Collection / Unknown 03/10/2023 4:15 PM CDT 03/10/2023 4:22 PM CDT Narrative [facility] - 03/11/2023 4:20 AM CDT Test performed by [employer] (TMA). us Denny Hicks PA-C LAB_1 Final Resu lt [facility] [address] [place] [address], [facility] [phone] from Last 3 Months or Most Recently Relevant to Health Maintenance Care Teams Wool Cleaner Relationship Specialty Start Date End Date No Primary/Referring, Emmay PCP - General 03/10/23
--- OUTSIDE RECORDS SUMMARY | 2024-12-01 17:28 | XMS_ITS | Clinical Summary ---
Author Organization [employer] [email or web address] Address [address] [place] [address] Care Team Providers Care Rn Imcu Name Role Phone Karian Araujo Primary Care Provider [phone] Allergies No known active allergies Medications ketoconazole [...] Description 10/20/2024 10:10 AM CDT Office Visit [facility] [address] [place] [address] Karina Araujo PA Physical (Annual exam with pap-pt thinks she had one done in [facility] last year) 10/20/2024 Travel 09/13/2024 11:00 AM SUMO WRESTLER Office Visit [facility] [address] [place] [address] Jade Collins, Cough; Throat Problem 09/13/2024 Travel 09/13/2024 Nurse Triage [facility] [address] [place] [address] Karina Araujo PA Difficulty Breathing; Throat Pain/problem [...] mi at 36 Heart Disease Maternal Grandmother [place] bef ore 65 Heart Disease Maternal Uncle Heart Disease Other cousin on [facility]'s side of long QT syndrome at [...] on file Legal Sex Female 5:44 AM SUMO WRESTLER Gender Identity Not on file Sexual Orientation [...] 37.1 C (98.7 F) 09/13/2024 11:12 AM SUMO WRESTLER Respiratory Rate 16 04/14/2024 2:28 PM CDT Oxygen Saturation 97% 10/20/2024 10:22 AM CDT Inhaled Oxygen Concentration - - Weight 62.6 kg (138 lb) 10/20/2024 10:22 AM CDT Height 168 cm (5' 6.14) 10/20/2024 10:22 AM CDT Body Mass Index 22.18 10/20/2024 10:22 AM CDT Plan of Treatment Health Maintenance Due Date [...] COVID/FLU/RSV PANEL Routine 09/13/2024 1 1:29 AM SUMO WRESTLER Cough, unspecified type GC CHLAMYDIA TRACH PROBE Routine 07/03/2021 3:15 PM SUMO WRESTLER Screening for chlamydial disease from Last 3 Months or Most Recently Relevant to Health Maintenance Results * TSH (10/20/2024 11:01 AM CDT) TSH 0.96 mIU/L [facility] Comment: Reference Range > or = 20 Years 0.40-4.50 Ranges First trimester 0.26-2.66 Second trimester 0.55-2.73 Third trimester 0.43-2.91 Blood BLOOD SPECIMEN / Unknown 10/20/2024 11:01 AM CDT 10/20/2024 11:02 AM CDT us Karina LIMA CHEMISTRY Final Resu lt [facility] [address] [place] [address], [place] [phone] [facility] [address] [place] [address] * (ABNORMAL) CBC AND DIFFERENTIAL (10/20/2024 11:01 AM CDT) Pathologist [facility] WHITE BLOOD CELL COUNT 5.8 3.8 - [...] LIMA HEMATOLOGY Final Resu lt [facility] [address] [place] [address], [place] [phone] [facility] [address] [place] [address] * FERRITIN (10/20/2024 11:01 AM CDT) FERRITIN 36 16 - 154 ng/mL [facility] Blood BLOOD SPECIMEN / Unknown 10/20/2024 11:01 AM CDT 10/20/2024 11:02 AM CDT Karina LIMA CHEMISTRY Final Resu lt [facility] [address] [place] [phone], [place] [phone] [facility] [address] [place] [address] * VITAMIN B12 (10/20/2024 11:01 AM CDT) VITAMIN B12 459 200 - 1,100 pg/mL [facility] Blood BLOOD SPECIMEN / Unknown 10/20/2024 11:01 AM CDT 10/20/2024 11:02 AM CDT Karina LIMA CHEMISTRY Final Resu lt Performing Organization Address City/[facility]/ZIP Co de Phone Number [facility] [address] [place] [address], [facility] [address] [place] [address] * URINE (10/20/2024 11:01 AM CDT) Pathologist [facility] HCG, QL, URINE NEGATIVE NEGATIVE [facility] Urine URINE SPECIMEN / Unknown 10/20/2024 11:01 AM CDT 10/20/2024 11:02 AM CDT Karina LIMA URINE Final Resu lt Performing Organization Address [facility] Co de Phone Number [facility] [address] [place] [address], [facility] [address] [place] [address] * (ABNORMAL) COMP METABOLIC PANEL (10/20/2024 11:01 AM CDT) Pathologist [facility] GLUCOSE 77 65 - 99 mg/dL [facility] Comment: Fasting reference interval UREA NITROGEN (BUN) 12 7 - 25 mg/dL [facility] CREATININE 0.78 0.50 - 0.96 mg/dL [facility] EGFR 109 > OR = 60 mL/min/1. 73m2 [facility] BUN/CREATININE RATIO SEE NOTE: 6 - 22 (calc) [facility] Comment: Not Reported: BUN and Creatinine are within reference range. SODIUM 138 135 - 146 mmol/L [facility] POTASSIUM 4.4 3.5 - 5.3 mmol/L [facility] [...] Karina LIMA CHEMISTRY Final Resu lt [facility] [address] [place] [address], [facility] [address] [place] [phone] * (ABNORMAL) COVID/FLU/RSV PANEL (09/13/2024 11:29 AM SUMO WRESTLER) [facility] COVID 19 [facility] Positive(A) Negative 09/14/2024 3:51 AM SUMO WRESTLER [facility] INFLUENZA A PCR Positive(A) 09/14/19 3:51 AM SUMO WRESTLER [facility] INFLUENZA B PCR Negative 3:51 AM SUMO WRESTLER [facility] Respiratory Syncytial Virus Negative 09/14/2024 3:51 AM SUMO WRESTLER [facility] Swab (Nasal Swab) Non-Blood / Unknown 09/13/2024 11:29 AM SUMO WRESTLER 09/13/2024 11:30 AM SUMO WRESTLER us Jade Collins DO MICROBIOLOGY Final Result [facility] [address] [place] [address], * GC CHLAMYDIA TRACH PROBE [[id number]] (07/03/2021 3:15 PM SUMO WRESTLER) CHLAMYDIA PROBE Negative 4:03 PM SUMO WRESTLER [facility] N GONORRHOEAE PROBE Negative 07/04/2021 4:03 PM SUMO WRESTLER [facility] Other URINE SPECIMEN / Unknown Non-Blood / Unknown 07/03/2021 3:15 PM SUMO WRESTLER 07/03/2021 3:36 PM SUMO WRESTLER Kristy Cortez DO MICROBIOLOGY Final Resul t [facility] [address] [place] [address], from Last 3 Months or Most Recently Relevant to Health Maintenance [place] [id number] [facility] ADVANTAGE Care Teams Rn Imcu Relationship Specialty Start Date End Date Karina Araujo PA [address] [place] [address] PCP - General Physician Sales Representative Meats 01/28/24
== END 2024-12-01 17:30 | disposition home or self-care (01) ==
LOC: ED 17:26
PROVIDERS: Emergency Provider Emergency Medicine Emergency Medical Services; PCP Family Medicine
DX: L56.8 Other specified acute skin changes due to ultraviolet radiation (principal); W89.1XXA Exposure to tanning bed, initial encounter
CPT/HCPCS: 99283; 99284

== ENCOUNTER 2024-12-20 21:46 | Emergency (ER) | payer BC, SELFPAY ==
--- OUTSIDE RECORDS SUMMARY | 2024-12-20 21:48 | XMS_ITS | Clinical Summary ---
Author Organization [facility] Address [address] [place] [address]. [place] [address] Care Team Providers Care Math Specialist Name Role Phone Kristy Cortez MD Primary Care Provider [phone] Allergies No known active allergies Medications Ipratropium-Albu [...] on file Legal Sex Female 4:00 PM ENGINEERING FACULTY MEMBER Gender Identity Not on file Sexual Orientation Not on file Last Filed Vital Signs Vital Sign Reading Time Taken Comments Blood Pressure 126/69 07/20/2017 4:07 PM ENGINEERING FACULTY MEMBER Pulse 88 07/20/2017 6:52 PM ENGINEERING FACULTY MEMBER Temperature 37.1 C (98.7 F) 07/20/2017 4:07 PM ENGINEERING FACULTY MEMBER Respiratory Rate 16 07/20/2017 6:52 PM ENGINEERING FACULTY MEMBER Oxygen Saturation 100% 07/20/2017 6:52 PM ENGINEERING FACULTY MEMBER Inhaled Oxygen Concentration - - Weight 61.2 kg (135 lb) 07/20/2017 4:07 PM ENGINEERING FACULTY MEMBER Height - - Body Mass Index - - Plan of Treatment Not on file Insurance [place] Care Teams Math Specialist Relationship Specialty Start Date End Date Kristy Cortez MD PCP - General Family Practice 07/20/17
--- OUTSIDE RECORDS SUMMARY | 2024-12-20 21:48 | XMS_ITS | Clinical Summary ---
Author Organization [employer] Address [address] [place] [address] Care Team Providers Care Communications Executive Name Role Phone Karina Araujo Primary Care Provider [phone] Allergies No known active allergies Medications ketoconazole 2 % creamIndications: Tinea corporis Apply topically to affected area(s) two times daily. 60 g 4 Active mometasone 0.1 % ointmentIndicatio ns:Rash Apply topically to affected area(s) once daily. 15 g 4 Active albuterol HFA (Ventolin HFA) 90 mcg/actuation inhalerIndication s:Exercise-induce d asthma (HC) Inhale 1-2 Puffs by mouth every 4 hours while awake. 18 g 3 5 Active dextroamphetamine -amphetamine (AdderalL) 20 mg tabletIndications :Attention deficit hyperactivity disorder (ADHD), combined type Take 1 Tablet (20 mg) by mouth two times daily. 60 Tablet 5 Active dextroamphetamine -amphetamine (AdderalL) 20 mg tabletIndications :Attention deficit hyperactivity disorder (ADHD), combined type Take 1 Tablet (20 mg) by mouth two times daily. 60 Tablet 5 01/09/20 25 Active dextroamphetamine -amphetamine (AdderalL) 20 mg tabletIndications :Attention deficit hyperactivity disorder (ADHD), combined type Take 1 Tablet (20 mg) by mouth two times daily. 60 Tablet 5 02/08/20 25 Active mupirocin 2% ointmentIndicatio ns:Sunburn, blistering Apply topically to affected area(s) three times daily for 5 days. To posterior calf and to bilateral arms 30 g 5 12/12/19 25 Active Problems Problem Noted Date Diagnosed Date Controlled substance agreement signed 01/28/2024 Bloody stools 04/02/2023 Moderate episode of recurrent major depressive d isorder 12/13/2020 Attention deficit hyperactiv ity disorder (ADHD), combined type 02/10/2020 Migraine without aura and wi thout status migrainosus, not intractable 12/15/2018 Syncope 01/12/2018 Eczema of right hand 09/06/2015 Encounters Date Type Department Care Team Description 12/20/2024 6:15 PM CDT Telemedicine [facility] [address] [place] [address] Karina Hester MD Blood In Stool 12/20/2024 Travel 12/06/2024 7:30 AM CDT Telemedicine [address] [place], [place] [id number] Aurea Gonzalez PA Concerns (sunburn ) 12/05/2024 Travel 10/20/2024 10:10 AM CDT Office Visit [facility] [address] [place] [address] Karina Araujo PA Physical (Annual exam with pap-pt thinks she had one done in [facility] last year) 10/20/2024 Travel from Last 3 Months Immunizations Immunization Administration [...] mi at 36 Heart Disease Maternal Grandmother [place] bef ore 65 Heart Disease Maternal Uncle Heart Disease Other cousin on [facility] er's side of long QT syndrome at [...] on file Legal Sex Female 5:44 AM SALT REFINER Gender Identity Not on file Sexual Orientation Not on file Travel History Travel Start Travel End [place] 12/08/2024 12/13/2024 Obstetrics History Para Term AB IAB SAB Ectopic Multiple Livin g Live Births 0 0 0 0 0 0 0 0 0 0 0 Last Filed Vital Signs Vital Sign Reading Time Taken Comments Blood Pressure 102/70 10/20/2024 10:22 AM CDT Pulse 105 10/20/2024 10:22 AM CDT Temperature 37.1 C (98.7 F) 09/13/2024 11:12 AM SALT REFINER Respiratory Rate 16 04/14/2024 2:28 PM CDT [...] age 16-24 07/03/2022 07/03/20 22, 10/14/2019, 05/18/2017 COVID-19 vaccine series ( season) 2024 Influenza Vaccine (Season Ended) 2025 05/21/2016, 07/05/2014, 05/13/2013, Additional history exists BMI (ht and wt on same day) for age 18+ 10/20/2025 10/20/2024, 07/27/2023, 07/02/2022, Additional history exists Depression screening for age 12+ 10/20/2025 10/20/2024 Tetanus booster 10/20/2034 10/20/2024, 04/01/2013 Pneumococcal series [...] URINE Routine 10/20/2024 11:01 AM CDT Amenorrhea GC CHLAMYDIA TRACH PROBE Routine 07/03/2021 3:15 PM SALT REFINER Screening for chlamydial disease from Last 3 [...] LIMA CHEMISTRY Final Resu lt [facility] [address] [place] [address], [facility] [address] [place] [address] * (ABNORMAL) CBC AND DIFFERENTIAL (10/20/2024 11:01 AM CDT) Pathologist [facility] WHITE BLOOD CELL COUNT 5.8 3.8 - 10.8 Thousand/u L [facility] RED BLOOD CELL COUNT 4.96 3.80 - 5.10 Million/uL [facility] HEMOGLOBIN 14.8 11.7 - 15.5 g/dL [facility] HEMATOCRIT 45.6(H) 35.0 - 45.0 % [facility] MCV 91.9 80.0 - 100.0 fL [facility] MCH 29.8 27.0 - 33.0 pg [facility] MCHC 32.5 32.0 - 36.0 g/dL [facility] Comment: For adults, a slight decrease in the calculated MCHC value (in the range of 30 to 32 g/dL) is most likely not clinically significant; however, it should be interpreted with caution in correlation with other red cell parameters and the patient's clinical condition. RDW 12.0 11.0 - 15.0 % [facility] PLATELET COUNT 328 140 - 400 Thousand/u L [facility] MPV 9.8 7.5 - 12.5 fL [facility] ABSOLUTE NEUTROPHILS 3,648 1,500 - 7,800 cells/uL [facility] ABSOLUTE LYMPHOCYTES 1,618 850 - 3,900 cells/uL [facility] ABSOLUTE MONOCYTES 418 200 - 950 cells/uL [facility] ABSOLUTE EOSINOPHILS 99 15 - 500 cells/uL [facility] ABSOLUTE BASOPHILS 17 0 - 200 cells/uL [facility] NEUTROPHILS 62.9 % [facility] LYMPHOCYTES 27.9 % [facility] MONOCYTES 7.2 % [facility] EOSINOPHILS 1.7 % [facility] BASOPHILS 0.3 % [facility] Blood BLOOD SPECIMEN / Unknown 10/20/2024 11:01 AM CDT 10/20/2024 11:02 AM CDT Karina LIMA HEMATOLOGY Final Resu lt [facility] [address] [facility] [place] [address], [place] [phone] [facility] [address] [facility] [place] [address] * FERRITIN (10/20/2024 11:01 AM CDT) FERRITIN 36 16 - 154 ng/mL [facility] Blood BLOOD SPECIMEN / Unknown 10/20/2024 11:01 AM CDT 10/20/2024 11:02 AM CDT Karina LIMA CHEMISTRY Final Resu lt [facility] [address] [place] [address], [place] [phone] [facility] [address] [place] [address] * VITAMIN B12 (10/20/2024 11:01 AM CDT) VITAMIN B12 459 200 - 1,100 pg/mL [facility] Blood BLOOD SPECIMEN / Unknown 10/20/2024 11:01 AM CDT 10/20/2024 11:02 AM CDT Karina LIMA CHEMISTRY Final Resu lt [facility] [address] [place] [address], [place] [phone] [facility] [address] [place] [address] * URINE (10/20/2024 11:01 AM CDT) HCG, QL, URINE NEGATIVE NEGATIVE [facility] Urine URINE SPECIMEN / Unknown 10/20/2024 11:01 AM CDT 10/20/2024 11:02 AM CDT Karina LIMA URINE Final Resu lt [facility] [address] [place] [address], [place] [phone] [facility] [address] [place] [address] * (ABNORMAL) COMP METABOLIC PANEL (10/20/2024 11:01 AM CDT) GLUCOSE 77 65 - 99 mg/dL [facility] Comment: Fasting reference interval UREA NITROGEN (BUN) 12 7 - 25 mg/dL [facility] CREATININE 0.78 0.50 - 0.96 mg/dL [facility] EGFR 109 > OR = 60 mL/min/1. 73m2 [facility] BUN/CREATININE RATIO SEE NOTE: 6 (calc) [facility] Comment: Not Reported: BUN and Creatinine are within reference range. SODIUM 138 135 - 146 mmol/L [facility] POTASSIUM 4.4 3.5 - 5.3 mmol/L [facility] CHLORIDE 104 98 - 110 mmol/L [facility] CARBON DIOXIDE 28 20 - 32 mmol/L [facility] CALCIUM 9.8 8.6 - 10.2 mg/dL [facility] PROTEIN, TOTAL 7.6 6.1 - 8.1 g/dL [facility] ALBUMIN 4.9 3.6 - 5.1 g/dL [facility] GLOBULIN 2.7 1.9 - 3.7 g/dL (calc) [facility] ALBUMIN/GLOBULIN RATIO 1.8 1.0 - 2.5 (calc) [facility] BILIRUBIN, TOTAL 1.5(H) 0.2 - 1.2 mg/dL [facility] ALKALINE PHOSPHATASE 72 31 - 125 U/L [facility] AST 18 10 - 30 U/L [facility] ALT 15 6 - 29 U/L [facility] Blood BLOOD SPECIMEN / Unknown 10/20/2024 11:01 AM CDT 10/20/2024 11:02 AM CDT Karina LIMA CHEMISTRY Final Resu lt [facility] [address] [place] [address], [address] [facility] [address] * GC CHLAMYDIA TRACH PROBE [[id number]] (07/03/2021 3:15 PM SALT REFINER) CHLAMYDIA PROBE Negative 4:03 PM SALT REFINER [facility] TRAL LABORATORY N GONORRHOEAE PROBE Negative 07/04/2021 4:03 PM SALT REFINER [facility] Other URINE SPECIMEN / Unknown Non-Blood / Unknown 07/03/2021 3:15 PM SALT REFINER 07/03/2021 3:36 PM SALT REFINER Kristy Cortez DO MICROBIOLOGY Final Resul t [facility] [address] [place] [address], from Last 3 Months or Most Recently Relevant to Health Maintenance Insurance [facility] Care Teams Communications Executive Relationship Specialty Start Date End Date Karina Araujo PA [address] [place] [address] PCP - General Physician Ed Manager 01/28/24
--- OUTSIDE RECORDS SUMMARY | 2024-12-20 21:48 | XMS_ITS | Clinical Summary ---
Author Organization [facility] Address [address], [place] [address] Care Team Providers Care Writer Producer Name Role Phone No Primary/Referring, Phy Primary Care Provider Unavailable Source Comments You are receiving this document as you are listed as the primary care provider,follow-up provider, or the patient has been referred to you for consultation.This is in compliance with the Medicare andMemorial Health Systemcaid EHR Incentive Program,which states Providers who transition their patient to another setting of careor provider of care or refers their patient to another provider of care shouldprovide summary care record for each transition of care or referral. [facility] Allergies No known active allergies Medications amphetamine-dext [...] exists Chlamydia 03/10/2024 03/10/2023 COVID-19 Vaccine ( - season) 2024 Influenza Vaccine (Season Ended) 2025 05/21/2016, 07/05/2014, 05/13/2013, Additional history exists Zoster/Shingles Vaccine [...] Detected(A) Not Detected 03/11/2023 4:20 AM CDT [facility] N. gonorrhoeae STD Not Detected Not Detected 03/11/2023 4:20 AM CDT [facility] Swab STD SPECIMEN FROM VAGINA / Unknown Non-blood Collection / Unknown 03/10/2023 4:15 PM CDT 03/10/2023 4:22 PM CDT Narrative [facility] - 03/11/2023 4:20 AM CDT Test performed by [employer] Professor Mediated Amplification (TMA). us Denny Hicks PA-C LAB_1 Final Resu lt [facility] [address] [place] [address], [facility] [phone] from Last 3 Months or Most Recently Relevant to Health Maintenance Care Teams Writer Producer Relationship Specialty Start Date End Date No Primary/Referring, Amauri PCP - General 03/10/23
[2024-12-20 21:58] VITALS: BP 125/80; PULSE 97; RESP 18; TEMP 36.9; O2SAT 98; BMI 21.8
--- OUTSIDE RECORDS SUMMARY | 2024-12-20 23:27 | XMS_ITS | Clinical Summary ---
Author Organization [employer] Address [address] [place] [address] Care Team Providers Care Bean Sorter Name Role Phone Karina Araujo Primary Care Provider +1- [phone] Allergies No known active allergies Medications ketoconazole [...] Team Description 12/20/2024 6:15 PM CDT Telemedicine [facility] [address] [place] [address] Karina Hester MD Blood In Stool 12/20/2024 Travel 12/06/2024 7:30 AM CDT Telemedicine [address] [place], [place] [id number] Aurea Gonzalez PA Concerns (sunburn ) 12/05/2024 Travel 10/20/2024 10:10 AM CDT Office Visit [facility] [address] [place] [address] Karina Araujo PA Physical (Annual exam with pap-pt thinks she had one done in [facility] last year) 10/20/2024 Travel from Last 3 [...] mi at 36 Heart Disease Maternal Grandmother [place] bef ore 65 Heart Disease Maternal Uncle Heart Disease Other cousin on [facility] er's side of long QT syndrome [...] on file Legal Sex Female 5:44 AM CORPORATE COORDINATOR Gender Identity Not on file Sexual Orientation Not on file Travel History Travel Start Travel End [place] 12/08/2024 12/13/2024 Obstetrics History Para Term AB IAB SAB Ectopic Multiple Livin g Live Births 0 0 0 0 0 0 0 0 0 0 0 Last Filed Vital Signs Vital Sign Reading Time Taken Comments Blood Pressure 102/70 10/20/2024 10:22 AM CDT Pulse 105 10/20/2024 10:22 AM CDT Temperature 37.1 C (98.7 F) 09/13/2024 11:12 AM CORPORATE COORDINATOR Respiratory Rate 16 04/14/2024 2:28 PM CDT [...] CHLAMYDIA TRACH PROBE Routine 07/03/2021 3:15 PM CORPORATE COORDINATOR Screening for chlamydial disease from Last 3 [...] LIMA CHEMISTRY Final Resu lt [facility] [address] [place] [address], [facility] [address] [place] [address] * (ABNORMAL) CBC AND DIFFERENTIAL (10/20/2024 11:01 AM CDT) Pathologist [facility] WHITE BLOOD CELL COUNT 5.8 3.8 - [...] LIMA HEMATOLOGY Final Resu lt [facility] [address] [facility] [place] [address], [place] [phone] [facility] [address] [facility] [place] [address] * FERRITIN (10/20/2024 11:01 AM CDT) FERRITIN 36 16 - 154 ng/mL [facility] Blood BLOOD SPECIMEN / Unknown 10/20/2024 11:01 AM CDT 10/20/2024 11:02 AM CDT Karina LIMA CHEMISTRY Final Resu lt [facility] [address] [place] [address], [place] [phone] [facility] [address] [place] [address] * VITAMIN B12 (10/20/2024 11:01 AM CDT) VITAMIN B12 459 200 - 1,100 pg/mL [facility] Blood BLOOD SPECIMEN / Unknown 10/20/2024 11:01 AM CDT 10/20/2024 11:02 AM CDT Karina LIMA CHEMISTRY Final Resu lt [facility] [address] [place] [address], [place] [phone] [facility] [address] [place] [address] * URINE (10/20/2024 11:01 AM CDT) HCG, QL, URINE NEGATIVE NEGATIVE [facility] Urine URINE SPECIMEN / Unknown 10/20/2024 11:01 AM CDT 10/20/2024 11:02 AM CDT Karina LIMA URINE Final Resu lt [facility] [address] [place] [address], [place] [phone] [employer] [facility] [address] [place] [address] * (ABNORMAL) COMP METABOLIC PANEL (10/20/2024 11:01 [...] CDT Karina LIMA CHEMISTRY Final Resu lt [facility] [address] [place] [address], [employer] [facility] [address] * GC CHLAMYDIA TRACH PROBE [[id number]] (07/03/2021 3:15 PM CORPORATE COORDINATOR) CHLAMYDIA PROBE Negative 4:03 PM CORPORATE COORDINATOR [facility] N GONORRHOEAE PROBE Negative 07/04/2021 4:03 PM CORPORATE COORDINATOR [facility] Other URINE SPECIMEN / Unknown Non-Blood / Unknown 07/03/2021 3:15 PM CORPORATE COORDINATOR 07/03/2021 3:36 PM CORPORATE COORDINATOR Kristy Cortez DO MICROBIOLOGY Final Resul t [facility] [address] [place] [address], from Last 3 Months or Most Recently Relevant to Health Maintenance Insurance [facility] Care Teams Bean Sorter Relationship Specialty Start Date End Date Karina Araujo PA [address] [place] [address] PCP - General Physician Tube Cleaner 01/28/24
--- OUTSIDE RECORDS SUMMARY | 2024-12-20 23:27 | XMS_ITS | Clinical Summary ---
Author Organization [facility] Address [address], [place] [address] Care Team Providers Care Marketing Writer Name Role Phone No Primary/Referring, Phy Primary Care Provider Unavailable Source Comments You are receiving this document as you are listed as the primary care provider,follow-up provider, or the patient has been referred to you for consultation.This is in compliance with the Medicare andF[facility] Hospitalcaid EHR Incentive Program,which states Providers who transition their patient to another setting of careor provider of care or refers their patient to another provider of care shouldprovide summary care record for each transition of care or referral. [facility] Allergies No known active allergies Medications amphetamine-dext [...] Detected(A) Not Detected 03/11/2023 4:20 AM CDT [facility] N. gonorrhoeae STD Not Detected Not Detected 03/11/2023 4:[address] [facility] Swab STD SPECIMEN FROM VAGINA / Unknown Non-blood Collection / Unknown 03/10/2023 4:15 PM CDT 03/10/2023 4:[address] [facility] - 03/11/2023 4:20 AM CDT Test performed by Campus Recruiting Intern Mediated Amplification (TMA). us Denny Hicks PA-C LAB_[address] [facility] [address] [place] [address], [facility] [phone] from Last 3 Months or Most Recently Relevant to Health Maintenance Care Teams Marketing Writer Relationship Specialty Start Date End Date No Primary/Referring, Amauri PCP - General 03/10/23
--- OUTSIDE RECORDS SUMMARY | 2024-12-20 23:27 | XMS_ITS | Clinical Summary ---
Author Organization [facility] Address [address] [place] [address]. [place] [address] Care Team Providers Care Bobtail Driver Name Role Phone Kristy Cortez MD Primary Care Provider [phone] Allergies No known active allergies Medications Ipratropium-Albu [...] on file Legal Sex Female 4:00 PM SAND TEMPERER Gender Identity Not on file Sexual Orientation Not on file Last Filed Vital Signs Vital Sign Reading Time Taken Comments Blood Pressure 126/69 07/20/2017 4:07 PM SAND TEMPERER Pulse 88 07/20/2017 6:52 PM SAND TEMPERER Temperature 37.1 C (98.7 F) 07/20/2017 4:07 PM SAND TEMPERER Respiratory Rate 16 07/20/2017 6:52 PM SAND TEMPERER Oxygen Saturation 100% 07/20/2017 6:52 PM SAND TEMPERER Inhaled Oxygen Concentration - - Weight 61.2 kg (135 lb) 07/20/2017 4:07 PM SAND TEMPERER Height - - Body Mass Index - - Plan of Treatment Not on file Insurance [place] Care Teams Bobtail Driver Relationship Specialty Start Date End Date Kristy Cortez MD PCP - General Family Practice 07/20/17
[2024-12-20 23:49] LABS: Basophils Absolute Auto 0.01 K/uL (0.00-0.30); Basophils Percent Auto 0.1 % (0.0-3.0); Eosinophils Absolute Auto 0.13 K/uL (0.00-0.50); Eosinophils Percent Auto 1.8 % (0.0-7.0); Hematocrit 38.8 % (33.0-51.0); Hemoglobin* 12.9 gm/dL (12.0-16.0); Immature Granulocytes Abs Auto 0.05 K/uL (0.00-0.30); Immature Granulocytes Pct Auto 0.7 %; Lymphocytes Absolute Auto 2.38 K/uL (0.90-2.90); Lymphocytes Percent Auto 32.2 % (20-44); Mean Corpuscular HGB Conc 33 gm/dL (32-36); Mean Corpuscular Hemoglobin 30 pg (26-34); Mean Corpuscular Volume 89 fL (80-100); Monocytes Percent Auto 8.3 % (0.0-11.0); Neutrophils Absolute Auto 4.21 K/uL (1.7-7.0); Neutrophils Percent Auto 56.9 % (42.0-72.0); Platelet Count* 362 K/uL (140-440); RDW Coefficient of Variation % 11.5 % (11.5-15.5); Red Blood Count 4.34 m/uL (4.00-5.20); White Blood Count* 7.39 K/uL (4.50-11.00)
[2024-12-20 23:56] LABS: Slide Review Reflex No
--- NOTE | 2024-12-21 01:26 | ED.GENADULT ---
HPI - General Adult General Date Seen: 12/21/24 Chief complaint: GI Bleed Stated complaint: Bloody stool Time Seen by Provider: 12/20/24 23:04 History of Present Illness HPI narrative: Patient is a 24-year-old here with her parents for evaluation of blood in the stool. She had a bowel movement earlier and noted bright red blood with some clots in the toilet. She does have a history of GI bleeding previously, and actually has been seen by GI and had a colonoscopy last year which was reportedly normal. She has not had any other evaluation for GI bleeding. She notes that she had a virtual visit with someone and they recommended that she come to the ER. She says she feels little bit nauseated and there is maybe some vague lower abdominal discomfort which is very mild. She has not had a huge appetite today but she says that is normal as she takes medication for ADHD. She does not feel that anything else is really out of the ordinary today. Related Data Home Medications ?Medication ?Instructions ?Recorded ?Confirmed dextroamphetamine-amphetamine 20 1 tab PO BID 12/01/24 12/20/24 mg tablet Allergies Allergy/AdvReac Type Severity Reaction Status Date / Time No Known Drug Allergies Allergy Verified 12/20/24 22:04 Review of Systems Status of ROS: Reports: 10 or more systems reviewed and unremarkable except as noted in History and below PFSH [facility] Social History Smoking Status: Never smoker Do you use any of these nicotine containing products: None Second hand tobacco smoke exposure: No How often do you have a drink containing alcohol: 2-4 times a month How often do you have six or more drinks on one occasion: Never AUDIT-C Alcohol total score: 2 Non-prescribed substance use: denies use Exam Narrative: Exam Narrative: Vital signs reviewed In general, alert, nontoxic Head: Normocephalic, atraumatic. Eyes: Sclera clear. Pupils equal and reactive. ENT: Mucous membranes moist. Neck: Supple without adenopathy. Heart: Regular rate and rhythm without murmur. Lungs: Clear. No increased work of breathing, crackles or wheezes. Abdomen: Soft, nondistended. Entirely nontender to palpation without rebound guarding or rigidity. She declines rectal exam. Extremities: Well perfused, pulses intact. No significant edema. Neurologic: Alert, conversant. Speech fluent, face symmetric. Moves all extremities equally. Skin: Warm, dry well perfused. Affect: Normal. Const: Vital Signs, click to edit/add: Vital Signs - 24 hr 12/20/24 21:58 Temperature 98.5 F Pulse Rate [Left P ulse Oximeter] 97 Respiratory Rate 18 Blood Pressure [Ri ght Upper Arm] 125/80 Pulse Oximetry 98 Oxygen Delivery Me thod Room Air Course Course ED Course: I checked a CBC, this is completely within normal limits. Hemoglobin is 12.9. Normal platelets, normal white blood cell count. At this time, I do not think she needs additional evaluation. Discussed various etiologies of lower GI bleeding, given that she had a normal colonoscopy last year, difficult to say with this might be related to, certainly think that hemorrhoids, AVM, inflammatory bowel disease etcetera less likely in the face of a recent normal colonoscopy. She feels comfortable going home. Discussed that I do not think this represents appendicitis, diverticulitis, or other acute process given the absence of abdominal pain or tenderness. I asked if she needed anything for nausea and she simply requested some water. She has been drinking water without difficulty. Discussed that if she is worsening, develops significant abdominal pain, worsening nausea vomiting or other new symptoms she should return. Otherwise I would simply see how she does. Primary care follow-up recommended, particularly if she is having persistent blood per rectum. If she has significant persistent bleeding she should return to the ER. They are comfortable with that plan. Vital Signs Vital signs: Initial Vital Signs Temperature 98.5 F 12/20/24 21:58 Temperature Source Temporal Artery Scan 12/20/24 21:58 Pulse Rate 97 12/20/24 21:58 Respiratory Rate 18 12/20/24 21:58 Blood Pressure 125/80 12/20/24 21:58 Blood Pressure Mean 95 12/20/24 21:58 Blood Pressure Position Sitting 12/20/24 21:58 Pulse Oximetry 98 12/20/24 21:58 Oxygen Delivery Method Room Air 12/20/24 21:58 Vital Signs Temperature 98.5 F 12/20/24 21:58 Pulse Rate 97 12/20/24 21:58 Respiratory Rate 18 12/20/24 21:58 Blood Pressure 125/80 12/20/24 21:58 Pulse Oximetry 98 12/20/24 21:58 Oxygen Delivery Method Room Air 12/20/24 21:58 Temperature 98.5 F 12/20/24 21:58 Pulse Rate 97 12/20/24 21:58 Respiratory Rate 18 12/20/24 21:58 Blood Pressure 125/80 12/20/24 21:58 Pulse Oximetry 98 12/20/24 21:58 Oxygen Delivery Method Room Air 12/20/24 21:58 Medical Decision Making Lab Data Labs: Lab Results 12/20/24 Range/Units 23:40 WBC 7.39 (4.50-11.00) K/uL RBC 4.34 (4.00-5.20) m/uL Hgb 12.9 (12.0-16.0) gm/dL Hct 38.8 (33.0-51.0) % MCV 89 (80-100) fL MCH 30 (26-34) pg MCHC 33 (32-36) gm/dL RDW Coeff of Terell 11.5 (11.5-15.5) % Plt Count 362 (140-440) K/uL Neut % (Auto) 56.9 (42.0-72.0) % Lymph % (Auto) 32.2 (20-44) % Ector % (Auto) 8.3 (0.0-11.0) % Eos % (Auto) 1.8 (0.0-7.0) % Baso % (Auto) 0.1 (0.0-3.0) % Neut # (Auto) 4.21 (1.7-7.0) K/uL Lymph # (Auto) 2.38 (0.90-2.90) K/uL Ector # (Auto) 0.60 (0.00-0.90) K/UL Eos # (Auto) 0.13 (0.00-0.50) K/uL Baso # (Auto) 0.01 (0.00-0.30) K/uL Abs Immat Gran (auto) 0.05 (0.00-0.30) K/uL Imm/Tot Granulo (auto) 0.7 % Discharge Plan Discharge Clinical Impression: BRBPR (bright red blood per rectum) Patient Disposition: Home, Self-Care Condition: Stable Instructions: Gastrointestinal Bleeding (ED) Additional Instructions: Your blood counts are entirely normal and reassuring tonight. I would recommend that you start by following up with your primary doctor, given that you had a colonoscopy a year ago, I am not sure that that needs to be repeated unless you are having ongoing bleeding. If you have repeated significant blood loss, have severe abdominal pain, fevers, vomiting or other worsening, return to the ER at any time. Prescriptions: No Action dextroamphetamine-amphetamine 20 mg tablet 1 tab PO BID Follow Up/Referrals: Kristy Cortez, [Primary Care Provider] - Stand Alone Forms: [facility] Info Instructions
== END 2024-12-21 00:14 | disposition home or self-care (01) ==
PROVIDERS: Emergency Provider Emergency Medicine; PCP Family Medicine
DX: K62.5 Hemorrhage of anus and rectum (principal)
CPT/HCPCS: 36415; 85025; 99283; 99284